=== PATIENT | female | born 1965 | race Caucasian/White ===

== ENCOUNTER 2023-12-11 13:20 | Emergency (ER) | payer MEDICARE, SELFPAY ==
[2023-12-11] VITALS (7 sets, daily range): BP systolic 107–142; BP diastolic 58–74; PULSE 70–76; TEMP 36.8; O2SAT 86–100; BMI 42.6
--- NOTE | 2023-12-11 13:52 | ED_ITS ---
HPI HPI - General Adult General Chief complaint: Shortness of Breath/Dyspnea Stated complaint: SOB Time Seen by Provider: 12/11/23 13:34 Source: patient and family History of Present Illness HPI narrative: This patient is here for concern of having possible pneumonia or bronchitis. She said she coughed once with sputum and it was green. She does not have runny nose or sore throat. She is on continuous oxygen at 4 L /. She uses a noninvasive device at nighttime. She has albuterol at home but did not use it. She is concerned because a family member that she lives with was recently diagnosed as having pneumonia. Her pulse oximetry here is 100% on 3 L, as I said she normally is on 4. She appears in no distress. She is not had nausea or vomiting. She has not had history of coronary artery disease. She has been told that her EKG has been abnormal in the past. She has not had a heart catheterization. She says she has some aching in her chest especially when she coughs a little bit Related Data Home Medications ?Medication ?Instructions ?Recorded ?Confirmed albuterol sulfate 90 mcg/actuation 2 inh inhalation Q4H PRN shortness 12/11/23 12/11/23 aerosol inhaler of breath or wheezing apixaban 5 mg tablet (Eliquis) 5 mg PO Q12H 12/11/23 12/11/23 atorvastatin 20 mg tablet 20 mg PO DAILY 12/11/23 12/11/23 brexpiprazole 1 mg tablet (Rexulti) 1 mg PO DAILY 12/11/23 12/11/23 bumetanide 2 mg tablet 2 mg PO Q12H 12/11/23 12/11/23 dulaglutide 3 mg/0.5 mL 3 mg subcut .weekly 12/11/23 12/11/23 subcutaneous pen injector (Trulicity) escitalopram oxalate 20 mg tablet 20 mg PO DAILY 12/11/23 12/11/23 fluticasone propionate 115 2 inh inhalation Q12H 12/11/23 12/11/23 mcg-salmeterol 21 mcg/actuation HFA inhaler (Advair HFA) glipizide 10 mg tablet 10 mg PO DAILY 12/11/23 12/11/23 hydroxyzine HCl 10 mg tablet 10 mg PO Q8H PRN anxiety 12/11/23 12/11/23 ipratropium 0.5 mg-albuterol 3 mg ml inhalation 12/11/23 (2.5 mg base)/3 mL nebulization soln levothyroxine 175 mcg tablet 175 mcg PO DAILY 12/11/23 12/11/23 metoprolol succinate 50 mg 50 mg PO DAILY 12/11/23 12/11/23 tablet,extended release 24 hr montelukast 10 mg tablet 10 mg PO DAILY 12/11/23 12/11/23 potassium chloride 20 mEq 20 meq PO DAILY 12/11/23 12/11/23 tablet,extended release(part/cryst) spironolactone 50 mg tablet 50 mg PO DAILY 12/11/23 12/11/23 Allergies Allergy/AdvReac Type Severity Reaction Status Date / Time No Known Drug Allergies Allergy Verified 12/11/23 13:44 Opioid HPI Opioid Management Most Recent Opioid Data: No Data to Display Exam Narrative Exam Narrative: Patient is awake alert does not appear an extremis. Has a somewhat flattened affect. Her vital signs are stable. She has continuous oxygen at 3 to 4 L. 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 Her chief complaint is as noted above. I reviewed her old medical records and cannot find anything in this electronic health record. She says she was admitted here 2 years ago and was intubated. She is awake oriented does not appear an extremis respiratory rate is normal she is not hypoxic. Skin and integument were normal with no petechia purpura rash or exanthem. There is no conjunctival scleral icterus or evidence of pallor. Lungs had no wheeze rales or rhonchi. Heart sounds are regular with no S3-S4 or murmur. She did not complain of any abdominal pain. Her legs have no pitting edema. Mental status appears normal. Constitutional Vital Signs, click to edit/add: Last Vital Signs Temp 98.2 F 12/11/23 13:56 Pulse 76 12/11/23 15:01 Resp 16 12/11/23 15:01 BP 137/66 12/11/23 15:01 Pulse Ox 90 L 12/11/23 15:01 O2 Del Method Nasal Cannula 12/11/23 14:25 O2 Flow Rate 3 12/11/23 14:25 Course Vital Signs Vital signs: Vital Signs Blood Pressure 124/58 05/30/24 13:39 Pulse Oximetry 86 L 12/11/23 13:39 Temperature 98.2 F 12/11/23 13:56 Pulse Rate 76 12/11/23 15:01 Respiratory Rate 16 12/11/23 15:01 Blood Pressure 137/66 12/11/23 15:01 Pulse Oximetry 90 L 12/11/23 15:01 Oxygen Delivery Method Nasal Cannula 12/11/23 14:25 Oxygen Delivery Flow Rate 3 12/11/23 14:25 Medical Decision Making MDM Narrative Medical decision making narrative: Patient's white blood cell count was noted to be modestly elevated but there is no bandemia. Rest her laboratory studies were noted. I spoke to her primary care doctor who had access to her lab test and her kidney function is pretty much identical. When I asked the patient if she is seeing a kidney specialist she said no and yet her primary care doctor says that she is followed by nephrology. She is also seeing pulmonary medicine here. Neither case he said to be glad to see her in the office we do not see any criteria for admission at this stage. Lab Data Labs: Lab Results 12/11/23 Range/Units 14:10 WBC 14.1 H (4.0-11.0) 10^3/uL RBC 3.85 L (4.20-5.40) 10^6/uL Hgb 10.5 L (12.0-16.0) g/dL Hct 34.2 L (36.0-48.0) % MCV 88.8 (81.0-99.0) fL MCH 27.3 (26.7-34.0) pg MCHC 30.7 (29.9-35.2) g/dL RDW 13.1 (11.0-15.0) % Plt Count 280 (150-450) 10^3/uL MPV 10.2 (9.5-13.5) fL Neut % (Auto) 84.9 H (43.0-75.0) % Lymph % (Auto) 6.6 L (20.5-60.0) % [place] % (Auto) 5.0 (1.7-12.0) % Eos % (Auto) 2.6 (0.9-7.0) % Baso % (Auto) 0.3 (0.2-2.0) % Neut # (Auto) 12.0 H (1.4-6.5) 10^3/uL Lymph # (Auto) 0.9 L (1.2-3.8) 10^3/uL [place] # (Auto) 0.7 (0.3-0.8) 10^3/uL Eos # (Auto) 0.4 (0.0-0.7) 10^3/uL Baso # (Auto) 0.0 (0.0-0.1) 10^3/uL Abs Immat Gran (auto) 0.09 H (0.00-0.03) 10^3/uL Imm/Tot Granulo (auto) 0.6 H (0.0-0.5) % Sodium 134 L (136-145) mmol/L Potassium 4.6 (3.5-5.1) mmol/L Chloride 96 L (98-107) mmol/L Carbon Dioxide 29.6 (21.0-32.0) mmol/L Anion Gap 13.0 BUN 42.0 H (7.0-18.0) mg/dL Creatinine 2.64 H (0.55-1.02) mg/dL Est GFR ( Amer) 23 L (>=60) Est GFR (Non-Af Amer) 19 L (>=60) BUN/Creatinine Ratio 15.9 Glucose 198 H (74-106) mg/dL Calcium 8.2 L (8.5-10.1) mg/dL Total Bilirubin 0.4 (0.2-1.0) mg/dL AST 9 L (15-37) U/L ALT 16 (14-59) U/L Alkaline Phosphatase 95 (46-116) U/L Troponin I High Sens 4.7 (4.0-51.3) pg/mL Total Protein 7.9 (6.4-8.2) g/dL Albumin 3.2 L (3.4-5.0) g/dL Globulin 4.7 g/dL Albumin/Globulin Ratio 0.7 Discharge Plan Discharge Stand Alone Forms: Portal Instructions Chief Complaint: Shortness of Breath/Dyspnea Clinical Impression: COPD (chronic obstructive pulmonary disease) Patient Disposition: Home, Self-Care Time of Disposition Decision: 16:19 Prescriptions / Home Meds: No Action albuterol sulfate 90 mcg/actuation HFA aerosol inhaler 2 inh INHALATION Q4H PRN (Reason: shortness of breath or wheezing) Eliquis 5 mg tablet 5 mg PO Q12H atorvastatin 20 mg tablet 20 mg PO DAILY Rexulti 1 mg tablet 1 mg PO DAILY bumetanide 2 mg tablet 2 mg PO Q12H Trulicity 3 mg/0.5 mL pen injector 3 mg SUBCUT .weekly escitalopram oxalate 20 mg tablet 20 mg PO DAILY fluticasone propion-salmeterol [Advair HFA] 115-21 mcg/actuation HFA aerosol inhaler 2 inh inhalation Q12H glipizide 10 mg tablet 10 mg PO DAILY hydroxyzine HCl 10 mg tablet 10 mg PO Q8H PRN (Reason: anxiety) ipratropium-albuterol 0.5 mg-3 mg(2.5 mg base)/3 mL solution for nebulization INHALATION levothyroxine 175 mcg tablet 175 mcg PO DAILY metoprolol succinate 50 mg tablet extended release 24 hr 50 mg PO DAILY montelukast 10 mg tablet 10 mg PO DAILY potassium chloride 20 mEq tablet,ER particles/crystals 20 meq PO DAILY spironolactone 50 mg tablet 50 mg PO DAILY Print Language: [place]i Additional Instructions: Continue your regular medications and oxygen therapy. Your doctor can see you tomorrow in the office Referrals: Shaikh Caldwell MD [Primary Care Provider] - 1 week
--- NOTE | 2023-12-11 14:04 | ECG_ITS ---
[facility] Test Date: 2023-12-11 Pat Name: FRITZ EVANS Department: Room: - Gender: Female Lpn Rn Hospice: : 1965 Requested By: SHAIKH JOE Order Number: [id number] Reading MD: MARTHA TAYLOR Measurements Intervals [place] Rate: 73 P: 65 DE: 218 QRS: -46 QRSD: 90 T: 41 QT: 404 QTc: 430 Interpretive Statements 1100 Sinus rhythm 2231 First degree AV block 3433 Septal myocardial infarction, probably old 7200 Abnormal left axis deviation 8102 Low QRS voltage in chest leads 9150 abnormal ECG Electronically Signed On 12-11-2023 22:38:27 EDT by MARTHA TAYLOR
[2023-12-11 14:22] LABS: Basophils Percent Auto 0.3 % (0.2-2.0); Eosinophils Absolute Auto 0.4 10^3/uL (0.0-0.7); Eosinophils Percent Auto 2.6 % (0.9-7.0); Hematocrit 34.2 % (36.0-48.0); Hemoglobin 10.5 g/dL (12.0-16.0); Immature Granulocytes Abs Auto 0.09 10^3/uL (0.00-0.03); Immature Granulocytes Pct Auto 0.6 % (0.0-0.5); Lymphocytes Absolute Auto 0.9 10^3/uL (1.2-3.8); Lymphocytes Percent Auto 6.6 % (20.5-60.0); Mean Corpuscular HGB Conc 30.7 g/dL (29.9-35.2); Mean Corpuscular Hemoglobin 27.3 pg (26.7-34.0); Mean Corpuscular Volume 88.8 fL (81.0-99.0); Mean Platelet Volume 10.2 fL (9.5-13.5); Monocytes Absolute Auto 0.7 10^3/uL (0.3-0.8); Neutrophils Percent Auto 84.9 % (43.0-75.0); Platelet Count 280 10^3/uL (150-450); Red Blood Count 3.85 10^6/uL (4.20-5.40); Red Cell Distribution Width 13.1 % (11.0-15.0); White Blood Count 14.1 10^3/uL (4.0-11.0)
[2023-12-11] MEDS: IPRATROPIUM/ALBUTEROL SULFATE 3 ML AMPUL.NEB IH (14:24)
[2023-12-11 14:43] LABS: Alanine Aminotransferase 16 U/L (14-59); Albumin Globulin Ratio 0.7; Albumin Level 3.2 g/dL (3.4-5.0); Alkaline Phosphatase 95 U/L (46-116); Aspartate Amino Transferase 9 U/L (15-37); BUN Creatinine Ratio 15.9; Bilirubin Total 0.4 mg/dL (0.2-1.0); Calcium 8.2 mg/dL (8.5-10.1); Carbon Dioxide 29.6 mmol/L (21.0-32.0); Chloride 96 mmol/L (98-107); Estimated GFR (African America 23 (>=60); Estimated GFR (Non-African Ame 19 (>=60); Globulin 4.7 g/dL; Glucose 198 mg/dL (74-106); Potassium 4.6 mmol/L (3.5-5.1); Sodium 134 mmol/L (136-145); Total Protein 7.9 g/dL (6.4-8.2); Troponin I High Sensitivity 4.7 pg/mL (4.0-51.3)
--- NOTE | 2023-12-11 14:55 | XR_ITS ---
The [address] [address] Patient Name: FRITZ EVANS MRN: [id number] date: 1965 Sex: F Assigned Patient Location: ED.MAIN Current Patient Location: ER Accession/Order Number: [id number] Exam Date: 12/11/2023 14:50 Report Date: 12/11/2023 15:39 At the request of: HIWOT DENG Procedure: XR chest 1V EXAMINATION: XR chest 1V HISTORY: Cough COMPARISON: 03/14/2022 TECHNIQUE: AP portable FINDINGS: LUNGS: No significant pulmonary parenchymal abnormalities. VASCULATURE: No increased pulmonary vasculature. PLEURA: No pneumothorax, effusion, or pleural thickening. CARDIAC: No cardiomegaly or cardiac silhouette abnormality. MEDIASTINUM: No visible mass or adenopathy. Aortic atherosclerosis BONES: No fracture or visible bone lesion. OTHER: Negative. XR/XR chest 1V IMPRESSION: No acute cardiopulmonary process Electronically authenticated by: BECKI VINCENT Date: 12/11/2023 15:39
== END 2023-12-11 16:41 | disposition home or self-care (01) ==
PROVIDERS: Emergency Provider Emergency Medicine Emergency Medical Services; PCP Internal Medicine
DX: J44.9 Chronic obstructive pulmonary disease, unspecified (principal); Z99.81 Dependence on supplemental oxygen
CPT/HCPCS: 36415; 71045; 80053; 84484; 85025; 93005; 94640; 99285

== ENCOUNTER 2023-12-19 10:58 | Outpatient (OUT) | payer MEDICARE, SELFPAY ==
--- NOTE | 2023-12-19 10:56 | MM_ITS ---
Patient Name: FRITZ EVANS MR#: [id number] : 1965 Exam Date: 12/19/2023 Ordering Doctor: Shaikh Oscar Caldwell . RADIOLOGY REPORT PROCEDURE: MM TOMOSYNTHESIS SCREENING BI COMPARISON: MG MAMM SCREEN IVONNE W CAD, 02/09/2018. MG MAMM SCREEN IVONNE W CAD, 12/31/2016. INDICATIONS: Screening Calculator Name NCI Breast Cancer Risk Assessment Tool 5 Year Breast Cancer Risk 1.30% Lifetime Breast Cancer Risk 7.60% Personal Breast Cancer No Personal Ovarian Cancer No Treatments None Family Cancers None LOCATION: [facility] BREAST COMPOSITION: There are scattered areas of fibroglandular density. FINDINGS: DIAGNOSTIC CATEGORY 2--BENIGN FINDING. NO CHANGE FROM COMPARISON. Scattered benign-appearing calcifications are present. Scattered benign-appearing lymph nodes are present. RIGHT BREAST: No significant suspicious finding. LEFT BREAST: No significant suspicious finding. RECOMMENDATIONS: ROUTINE MAMMOGRAM AND CLINICAL EVALUATION IN 12 MONTHS. PLEASE NOTE: A NORMAL MAMMOGRAM DOES NOT EXCLUDE THE POSSIBILITY OF BREAST CANCER. A CLINICALLY SUSPICIOUS PALPABLE LUMP SHOULD BE BIOPSIED. Dictated by: Stoney Shaw MD on 12/22/2023 at 13:36 Approved by: Stoney Shaw MD on 12/22/2023 at 13:37
== END 2023-12-19 10:59 | disposition home or self-care (01) ==
LOC: MAMMO 10:58
PROVIDERS: PCP Internal Medicine; Visit Provider Internal Medicine
DX: Z12.31 Encounter for screening mammogram for malignant neoplasm of breast (principal); Z87.891 Personal history of nicotine dependence; Z12.2 Encounter for screening for malignant neoplasm of respiratory organs
CPT/HCPCS: 71271; 77063; 77067

== ENCOUNTER 2023-12-19 10:58 | Outpatient (OUT) | payer MEDICARE, SELFPAY ==
--- NOTE | 2023-12-19 10:58 | CT_ITS ---
[address] [address] Patient Name: FRITZ EVANS MRN: [id number] date: 1965 Sex: F Assigned Patient Location: CT Current Patient Location: Accession/Order Number: [id number] Exam Date: 12/19/2023 11:24 Report Date: 12/22/2023 04:31 At the request of: JOSELINE ROBLES Procedure: CT lung screening low-dose EXAMINATION: CT lung screening low-dose HISTORY: Nicotine dependence Z87.891 COMPARISON: CT chest 05/09/2022 TECHNIQUE: Axial, Coronal, and Sagittal images were created without the administration of IV contrast material. Dose reduction techniques were achieved by using automated exposure control and/or adjustment of mA and/or kV according to patient size and/or use of iterative reconstruction technique. FINDINGS: LUNGS: Stable thin curvilinear stranding within left lung base favoring scarring. No mass or acute infiltrates. Stable appearance of a few small nodules scattered within the lungs, largest is right lower lobe superior segment, 4 mm. PLEURA: No mass, effusion, or pneumothorax. VASCULATURE: No abnormality. VALENTE: No mass or pathologic adenopathy. MEDIASTINUM: No mass or pathologic adenopathy. CARDIAC: No enlargement, pericardial thickening, or pericardial effusion. Coronary artery calcifications: AORTA: No aneurysm or dissection. CHEST WALL: No mass or axillary adenopathy BONES: No bone lesion or fracture. LIMITED ABDOMEN: No suspicious findings. Limited images of the upper abdomen. OTHER: Negative. CT/CT lung screening low-dose IMPRESSION: 1. Lung-RADS 2- Benign Appearance or Behavior. Nodules with a very low likelihood of becoming a clinically active cancer due to size or lack of growth. Follow-up CT Chest in 1 year. Electronically authenticated by: LAURITA ROBLES Date: 12/22/2023 04:31
== END 2023-12-19 10:59 | disposition home or self-care (01) ==
LOC: CT 10:59
PROVIDERS: PCP Internal Medicine; Visit Provider Internal Medicine
DX: Z87.891 Personal history of nicotine dependence (principal); Z12.2 Encounter for screening for malignant neoplasm of respiratory organs
CPT/HCPCS: 71271

== ENCOUNTER 2024-12-23 14:09 | Outpatient (OUT) | payer MEDICARE, SELFPAY ==
--- NOTE | 2024-12-23 14:20 | CT_ITS ---
[address] [address] Patient Name: FRITZ EVANS MRN: [id number] date: 1965 Sex: F Assigned Patient Location: CT Current Patient Location: CT Accession/Order Number: [id number] Exam Date: 12/23/2024 14:53 Report Date: 12/23/2024 15:01 At the request of: JOSELINE ROBLES DO Procedure: CT lung screening low-dose CT CHEST WITHOUT CONTRAST, LOW DOSE SCREENING: CLINICAL DATA: A 59-year old former smoker COMPARISON: CT 12/19/2023 TECHNIQUE: Noncontrast axial CT scan images of the chest were obtained under the low dose screening CT protocol. Coronal and sagittal reconstructed images were also submitted. FINDINGS: Mediastinum : Suboptimal evaluation due to low-dose technique. Thoracic aorta appears normal in caliber. Pulmonary trunk appears nondilated. No pericardial effusion. No lymphadenopathy. The esophagus is grossly unremarkable. Lungs: No focal consolidation, pneumothorax or pleural effusion. Trachea and distal airways appear patent. Scattered areas of lung scarring. Emphysema. A few tree-in-bud nodules are noted. No suspicious noncalcified pulmonary nodule or mass. Upper abdomen: No acute findings. Bony thorax and chest wall: Soft tissues surrounding the chest wall demonstrate no acute findings. Osseous structures demonstrate degenerative change. CT/CT lung screening low-dose IMPRESSION: NO SUSPICIOUS PULMONARY NODULE. LUNG - RADS Version 1.0 Assessment: Category 1, Negative (No nodules and definitely benign nodules). Management: Continue annual lung screening with LDCT in 12 months. Impression dictated by: Ajay Dumont Jr., D.O. 12/23/2024 3:01 PM Dictation Location: [place] [address] Electronically authenticated by: [id number] Y Date: 12/23/2024 15:01
== END 2024-12-23 14:10 | disposition home or self-care (01) ==
PROVIDERS: PCP Internal Medicine; Visit Provider Internal Medicine
DX: Z87.891 Personal history of nicotine dependence (principal); Z12.2 Encounter for screening for malignant neoplasm of respiratory organs
CPT/HCPCS: 71271

== ENCOUNTER 2024-12-23 14:12 | Outpatient (OUT) | payer MEDICARE, SELFPAY ==
--- OUTSIDE RECORDS SUMMARY | 2024-12-23 14:15 | XMS_ITS | Clinical Summary ---
Author Organization [facility] Address [address] [place] [address] Care Team Providers Care Clerk Of Scales Name Role Phone Lokesh Khoury MD Primary Care Provider [phone] Sharmin Ballard TECHNICAL SUPPORT INTERNSHIP Unavailable [phone] Allergies Active Allergy Reactions Criticality Noted Date Comments Cat Dander 11/03/2022 Dog Epithelium 11/03/2022 Erythromycin 10/01/2023 Erythromycin Base 05/02/2016 Other reaction(s): Severe nausea & vomiting Medications Continuous Blood Gluc Spirits Model (FreeStyle Vitaliy 2 [place]) deviceIndications: Type 2 diabetes mellitus with stage 3a chronic kidney disease, without long-term current use of insulin ([facility]) 1 each Daily 1 each 09/22/19 24 Active ipratropium-albute rol (Duo-Neb) 0.5-2.5 mg/3 mL nebulizer solution Take 3 mL by nebulization in the morning and 3 mL at noon and 3 mL in the evening and 3 mL before bedtime. 09/03/19 24 Active Stiolto Respimat 2.5-2.5 MCG/ACT aerosol solution inhaler Inhale 2 Inhalation Daily 09/08/19 24 Active Continuous Blood Gluc Spirits Model (FreeStyle Vitaliy 2 [place]) deviceIndications: Type 2 diabetes mellitus with stage 4 chronic kidney disease, without long-term current use of insulin (HCC) 1 each Daily 1 each 10/01/19 24 Active metoprolol succinate XL (Toprol-XL) 50 MG 24 hr tabletIndications: Primary hypertension Take 1 tablet (50 mg) by mouth Daily 90 tablet 1 01/01/20 24 Active spironolactone (Aldactone) 50 MG tabletIndications: Primary hypertension Take 1 tablet (50 mg) by mouth Daily 90 tablet 1 01/01/20 24 Active apixaban (Eliquis) 5 MG tabletIndications: Other chronic pulmonary embolism without acute cor pulmonale (HCC) Take 1 tablet (5 mg) by mouth every 12 (twelve) hours 180 tablet 01/01/20 24 Active dulaglutide (Trulicity) 3 MG/0.5ML solution pen-injectorIndica tions:Type 2 diabetes mellitus with stage 4 chronic kidney disease, with long-term current use of insulin ([facility]) Inject 3 mg under the skin 1 (one) time per week 6 mL 1 01/01/20 24 Active atorvastatin (Lipitor) 20 MG tabletIndications: Hyperlipidemia, unspecified hyperlipidemia type Take 1 tablet (20 mg) by mouth Daily 90 tablet 1 01/01/20 24 Active escitalopram (Lexapro) 20 MG tabletIndications: Recurrent major depressive disorder, in partial remission Take 1 tablet (20 mg) by mouth Daily 90 tablet 1 01/01/20 24 Active levothyroxine (Synthroid, Levoxyl) 175 MCG tabletIndications: 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 Take 1 tablet (175 mcg) by mouth Daily 90 tablet 1 01/01/20 24 Active buPROPion XL (Wellbutrin XL) 150 MG 24 hr tabletIndications: Recurrent major depressive disorder, in partial remission Take 1 tablet (150 mg) by mouth Daily 90 tablet 1 01/01/20 24 Active glipiZIDE (Glucotrol) 10 MG tabletIndications: Type 2 diabetes mellitus with stage 4 chronic kidney disease, without long-term current use of insulin ([facility]) Take 1 tablet (10 mg) by mouth Daily 90 tablet 1 01/01/20 24 Active montelukast (Singulair) 10 MG tabletIndications: Chronic rhinitis Take 1 tablet (10 mg) by mouth Daily 90 tablet 1 01/01/20 24 Active bumetanide (Bumex) 2 MG tabletIndications: Type 2 diabetes mellitus with stage 4 chronic kidney disease, without long-term current use of insulin ([facility]),Chronic heart failure with preserved ejection fraction (HCC) TAKE 1 TABLET BY MOUTH IN THE MORNING and TAKE 1 TABLET AT BEDTIME. 180 tablet 1 02/25/20 24 Active Active Problems Problem Noted Date Diagnosed Date Chronic heart failure with preserved ejection fr action 01/01/2024 Assessment & Plan (01/01/2024 10:18 AM EDT): Euvolemic with mild LE edema. On bumex 2 q12. C/w same. No recent hospital/ED visit for CHF exacerbations Chronic rhinitis 01/01/2024 Assessment & Plan (01/01/2024 10:19 AM EDT): Uses singulair CKD (chronic kidney disease) stage 4, GFR 15-29 ml/min 01/01/2024 Assessment & Plan (01/01/2024 10:19 AM EDT): CKD 4 due to T2 DM. Serum cr more or less at baseline. Bumex for volume control Refer to nephro Medicare annual wellness visit, subsequent 12/31 Assessment & Plan (01/01/2024 10:21 AM EDT): Patient here for Medicare Wellness. Reviewed medical, surgical and social history. Reviewed medication list. Patient screened for depression, fall risk, cognitive impairment. Patient provided appropriate education on chronic medical conditions, prescription medications. Patient's health related questions and concerns addressed and answered. Reiterated that she needs to get Cologuard done Type 2 diabetes mellitus wit h stage 4 chronic kidney disease, with long-term current use of insulin 01/01/2024 Multinodular goiter 10/01/2023 Encounter for screening for malignant neoplasm o f colon 10/01/2023 Assessment & Plan (10/01/2023 1:07 PM EDT): Ordered cologuard. Body mass index [BMI] 50.0-59.9, adult (Z68.43) 10/01/2023 Assessment & Plan (10/01/2023 1:07 PM EDT): Would benefit from weight loss. On trulicity. Morbid (severe) obesity due to excess calories ( E66.01) 10/01/2023 Assessment & Plan (10/01/2023 1:07 PM EDT): Counseled on lifestyle measures, limiting caloric intake. Stage 4 chronic kidney disease 10/01/2023 Assessment & Plan (10/01/2023 1:06 PM EDT): Due to htn, t2 dm. No recent labs. Ordered labs. Type 2 diabetes mellitus wit h stage 4 chronic kidney disease, without long-term current use of insulin 10/01/2023 Assessment & Plan (01/01/2024 10:19 AM EDT): Reports blood glucose are at goal A1C 10/04 at goal C/w metformin, glipizide and trulicity. Assessment & Plan (10/01/2023 1:06 PM EDT): Reports blood glucose are at goal Labs ordered to assess her glycemic control C/w metformin, glipizide and trulicity. Chronic respiratory failure with hypoxia, on home O2 therapy 06/19/2018 Assessment & Plan (01/01/2024 10:17 AM EDT): Due to COPD/CHF and OHS. Uses BIPAP for OHS/DANIEL On 4 l O2 Assessment & Plan (10/01/2023 1:05 PM EDT): On 4.5 L O2 via NC. No change. Stable. Monitor COPD (chronic obstructive pulmonary disease) 01/2018 Assessment & Plan (01/01/2024 10:17 AM EDT): On [place]. Follows Dr Dent. Recent ED visit for COPD exacerbation and then Dr Dent prescribed her oral prednisone in office visit for mild COPD exacerbation No wheezing/cough or SOB reported by patient. Assessment & Plan (10/01/2023 1:05 PM EDT): On [place]. Follows Dr Dent. No recent exacerbations. Stable. Depression 06/19/2018 Assessment & Plan (01/01/2024 10:20 AM EDT): Currently on Lexapro, Wellbutrin. No SI/HI. Patient reports intermittent depressive symptoms. Overall improved. Assessment & Plan (10/01/2023 1:08 PM EDT): Currently on Lexapro, Wellbutrin. No SI/HI. Patient reports intermittent depressive symptoms. Fibromyalgia 06/19/2018 Hyperlipidemia 06/19/2018 Assessment & Plan (01/01/2024 10:20 AM EDT): On lipitor. Lipid panel 10/04 LDL at goal Assessment & Plan (10/01/2023 1:07 PM EDT): On lipitor. Check lipid panel Hypertension 06/19/2018 Assessment & Plan (01/01/2024 10:18 AM EDT): Stable. At goal. C/w home medications. Hypothyroidism 06/19/2018 Assessment & Plan (01/01/2024 10:19 AM EDT): On levothyroxine 175 mcg.TSH at goal 10/04 Assessment & Plan (10/01/2023 1:07 PM EDT): On levothyroxine 175 mcg. Check TSH DANIEL (obstructive sleep apnea) 06/19/2018 Other pulmonary embolism without acute cor pulmo nale 06/19/2018 Assessment & Plan (01/01/2024 10:18 AM EDT): On Eliquis. C/w same. Pulmonary HTN 06/19/2018 H/O: section 08/24/2010 Obesity 08/24/2010 Immunizations Immunization Administration Dates Next Due Influenza, injectable, quadrivalent, preservativ e free 06/19/2018 Family History Medical History Relation Name Comments Asthma Father Heart disease Father Hypertension Father Cancer Maternal Grandfather Mental illness Maternal Grandmother Heart disease Mother Cancer Mother's Sister Hypertension Other Spouse Cancer Paternal Grandfather Heart disease Paternal Grandfather Hypertension Paternal Grandfather Cancer Paternal Grandmother Asthma Son Diabetes Son Heart disease Son Hypertension Son Mental illness Son Relation Name Status Comments Father Maternal Grandfather Maternal Grandmother Mother Alive Mother's Sister Other Spouse Alive Paternal Grandfather Paternal Grandmother Sibling Alive Son Alive Social History Tobacco Use Types Packs/Day Years Used Date Smoking Tobacco: Former Cigarettes Passive Smoke Exposure: Past Smokeless Tobacco: Current Tobacco Cessation:Ready to Q uit: No; Counseling Given: Yes Comments:(Heavy cigarette smoker (20-39/day) Alcohol Use Standard Drinks/Week Comments Never 0 (1 standard drink = 0.6 oz pur e alcohol) PHQ-2 Answer Date Recorded Patient Health Questionnaire-2 Score 0 01/01/2024 Comments Unknown Sex and Gender Information Value Date Recorded Sex Assigned at Not on file Legal Sex Female 6:54 PM EDT Gender Identity Not on file Sexual Orientation Not on file 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 on file Not on file Not on file Last Filed Vital Signs Vital Sign Reading Time Taken Comments Blood Pressure 112/68 01/01/2024 9:37 AM EDT Pulse 71 01/01/2024 9:37 AM EDT 97% O 2 Temperature 37.3 C (99.1 F) 01/01/2024 9:37 AM EDT Respiratory Rate 20 10/01/2023 11:40 AM EDT Oxygen Saturation 98% 10/01/2023 11:40 AM EDT Inhaled Oxygen Concentration - - Weight 134 kg (296 lb) 01/01/2024 9:37 AM EDT Height 172.7 cm (5' 8 ) 01/01/2024 9:37 AM EDT Body Mass Index 45.01 01/01/2024 9:37 AM EDT Plan of Treatment Health Maintenance Due Date Last Done Comments CT Colonography 1965 Colonoscopy 1965 Colorectal Cancer Screening 1965 FIT-DNA 1965 FIT 1965 FOBT 1965 Sigmoidoscopy 1965 Pap Smear 1986 HPV/Cotest 11/30/1995 Diabetes: Hemoglobin A1C 04/07/2024 10/06/2023, 03/15 Mammogram 12/21/2024 12/22/2023, 12/12, 02/09/2018, Additional history exists Diabetes: Retinopathy Screening 03/14/2025 Influenza Vaccine (Season Ended) 2025 05/06/2020, 09/15/2019, 06/19/2018 Medicare Annual Wellness (AWV) 07/29/2025 0 07/29/2024, 01/01/2024, 01/01/2024 Diabetes: Urine Protein Screening 09/23/2025 025, 09/23/2024 Cervical Cancer Screening Discontinued Procedures Procedure Name Priority Date/Time Associated Diagnosis Comments MM TOMOSYNTHESIS SCREENING BI 12/22/2023 1:37 PM EDT from Last 3 Months or Most Recently Relevant to Health Maintenance Results * MM TOMOSYNTHESIS SCREENING BI (12/22/2023 1:37 PM EDT) Anatomical Region Laterality Modality Other 12/22/2023 1:37 PM EDT Narrative 12/22/2023 1:38 [place] [address] Mammography Report Signed Patient: FRITZ FRASER MR#: [id number] : 1965 Acct:[id number] Age/Sex: 58 / F ADM Date: 12/19/23 Loc: MAMMO Attending Dr: Shaikh Javi Del Rio Ordering Physician: Shaikh Quang Caldwell Results: Date of Service: 12/19/23 Follow Up: Procedure(s): MM tomosynthesis screening BI Accession Number(s): [id number] cc: Shaikh Quang Caldwell Patient Name: FRITZ FRASER MR#: [id number] : 1965 Exam Date: 12/19/2023 Ordering Doctor: Shaikh Oscar Caldwell . RADIOLOGY REPORT PROCEDURE: MM TOMOSYNTHESIS SCREENING BI COMPARISON: MG MAMM SCREEN IVONNE W CAD, 02/09/2018. MG MAMM SCREEN IVONNE W CAD, 12/31/2016. INDICATIONS: Screening Calculator Name NCI Breast Cancer Risk Assessment Tool 5 Year Breast Cancer Risk 1.30% Lifetime Breast Cancer Risk 7.60% Personal Breast Cancer No Personal Ovarian Cancer No Treatments None Family Cancers None LOCATION: [facility] BREAST COMPOSITION: There are scattered areas of fibroglandular density. FINDINGS: DIAGNOSTIC CATEGORY 2--BENIGN FINDING. NO CHANGE FROM COMPARISON. Scattered benign-appearing calcifications are present. Scattered benign-appearing lymph nodes are present. RIGHT BREAST: No significant suspicious finding. LEFT BREAST: No significant suspicious finding. RECOMMENDATIONS: ROUTINE MAMMOGRAM AND CLINICAL EVALUATION IN 12 MONTHS. PLEASE NOTE: A NORMAL MAMMOGRAM DOES NOT EXCLUDE THE POSSIBILITY OF BREAST CANCER. A CLINICALLY SUSPICIOUS PALPABLE LUMP SHOULD BE BIOPSIED. Dictated by: Stoney Shaw MD on 12/22/2023 at 13:36 Approved by: Stoney Shaw MD on 12/22/2023 at 13:37 Dictated By: Stoney Shaw M.D. Signed By: 12/22/23 1338 DD/ 1337 TD/TT: Mail Messenger Contractor: Procedure Note Radiology, Radiologist, MD - 12/22/2023 [place] [address] Mammography Report Signed Patient: MEHRAN FRASER#: [id number] : 1965Acct:[id number] Age/Sex: 58 / FADM Date: 12/19/23 Loc: MAMMO Attending Dr: Shaikh Javi Del Rio Ordering Physician: Shaikh Quang CaldwellResults: Date of Service: 12/19/23Follow Up: Procedure(s): MM tomosynthesis screening BI Accession Number(s): [id number] cc: Shaikh Quang Caldwell Patient Name: FRITZ FRASER MR#: [id number] : 1965 Exam Date: 12/19/2023 Ordering Doctor: Shaikh Oscar Caldwell . RADIOLOGY REPORT PROCEDURE: MM TOMOSYNTHESIS SCREENING BI COMPARISON: MG MAMM SCREEN IVONNE W CAD, 02/09/2018. MG MAMM SCREEN IVONNE W CAD, 12/31/2016. INDICATIONS: Screening Calculator Name NCI Breast Cancer Risk Assessment Tool 5 Year Breast Cancer Risk 1.30% Lifetime Breast Cancer Risk 7.60% Personal Breast Cancer No Personal Ovarian Cancer No Treatments None Family Cancers None LOCATION: [facility] BREAST COMPOSITION: There are scattered areas of fibroglandulardensity. FINDINGS: DIAGNOSTIC CATEGORY 2--BENIGN FINDING. NO CHANGE FROM COMPARISON.Scattered benign-appearing calcifications are present. Scattered benign-appearinglymph nodes are present. RIGHT BREAST: No significant suspicious finding. LEFT BREAST: No significant suspicious finding. RECOMMENDATIONS: ROUTINE MAMMOGRAM AND CLINICAL EVALUATION IN 12 MONTHS. PLEASE NOTE: A NORMAL MAMMOGRAM DOES NOT EXCLUDE THE POSSIBILITY OFBREAST CANCER. A CLINICALLY SUSPICIOUS PALPABLE LUMP SHOULD BE BIOPSIED. Dictated by: Stoney Shaw MD on 12/22/2023 at 13:36 Approved by: Stoney Shaw MD on 12/22/2023 at 13:37 Dictated By: Stoney Shaw M.D. Signed By:12/22/23 1338 DD/ 1337 TD/TT: Mail Messenger Contractor: Shaikh Javi [facility] Final Result from Last 3 Months or Most Recently Relevant to Health Maintenance Insurance [employer] MEDICAID [place] Care Teams Clerk Of Scales Relationship Specialty Start Date End Date Lokesh Khoury MD [address] [place] [id number] PCP - General Family Medicine 02/23/24 Sharmin Ballard NP [address] [place] [address] Nurse Practitioner Family Medicine 02/23/24
--- OUTSIDE RECORDS SUMMARY | 2024-12-23 14:15 | XMS_ITS | Encounter Summary ---
Author Organization [facility] Address [address] [facility] [place] [address] Care Team Providers Care Scheduler Conveyor Name Role Phone Shaikh CARI Caldwell Primary Care Provider [phone] Lokesh Khoury MD Primary Care Provider [phone] Sharmin Ballard DIRECTOR BANKING Unavailable [phone] Encounter Details Date Type Department Care Team (Late st Contact Info) Description 12/22/2023 Orders Only [facility] [address] [place] [address] Shaikh Caldwell MD [address] [place] [address] Social History Tobacco Use Types Packs/Day Years Used Date Smoking Tobacco: Former Cigarettes Smokeless Tobacco: Current Comments:(Heavy cigarette sm oker (20-39/day) Alcohol Use Standard Drinks/Week Comments Never 0 (1 standard drink = 0.6 oz pur e alcohol) PHQ-2 Answer Date Recorded Patient Health Questionnaire-2 Score 2 10/01/2023 Comments Unknown Sex and Gender Information Value Date Recorded Sex Assigned at Not on file Legal Sex Female 6:54 PM EDT Gender Identity Not on file Sexual Orientation Not on file 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 Not on file Not on file documented as of this encounter Plan of Treatment Not on file documented as of this encounter Procedures Procedure Name Priority Date/Time Associated Diagnosis Comments MM SCREENING MAMM WITH 3D KAYLAH - US AND ADDITIONAL Routine 12/22/2023 1:46 PM EDT documented in this encounter Results * MM SCREENING MAMM WITH 3D KAYLAH - US AND ADDITIONAL (12/22/2023 1:46 PM EDT) Anatomical Region Laterality Modality Radiographic Eulalia ging us Shaikh Javi [facility] IM[facility] XR PROCEDURES Final Result documented in this encounter Visit Diagnoses Not on filedocumented in this encounter Care Teams Scheduler Conveyor Relationship Specialty Start Date End Date Shaikh Caldwell MD [address] [place] [phone] PCP - General Internal Medicine 10/01/23 02/22/24 Lokesh Khoury MD [address] [place] [phone] PCP - General Family Medicine 02/23/24 Sharmin Ballard NP [address] [place] [phone] Nurse Practitioner Family Medicine 02/23/24 documented as of this encounter
--- OUTSIDE RECORDS SUMMARY | 2024-12-23 14:15 | XMS_ITS | Clinical Summary ---
Author Organization [facility] Address [address] [place] [address] Care Team Providers Care Electrician Helper Powerhouse Name Role Phone Juan Luis Reza MD Primary Care Provider [phone] Allergies Active Allergy Reactions Criticality Noted Date Comments Cat Dander 11/03/2022 Dog Epithelium 11/03/2022 Erythromycin Base 05/02/2016 Other reaction(s): Severe nausea & vomiting Medications tiotropium (SPIRIVA) 18 MCG inhalation capsuleIndicati ons:Chronic obstructive pulmonary disease, unspecified COPD type (HCC) Inhale 1 capsule into the lungs daily 30 capsule 5 018 Active albuterol (PROVENTIL) (2.5 MG/3ML) 0.083% nebulizer solutionIndicat ions:Chronic obstructive pulmonary disease, unspecified COPD type (HCC) Take 3 mLs by nebulization every 6 hours as needed for Wheezing 120 each 5 018 Active Handicap Placard MISCIndications :Small fiber neuropathy,Operations Project Manager alexandra obstructive pulmonary disease with acute exacerbation (HCC) by Does not apply route Exp 5 years 1 each 019 Active Misc. Devices (COMMODE BEDSIDE) MISCIndications :Immobility,Chr onic obstructive pulmonary disease, unspecified COPD type (HCC) 1 each by Does not apply route daily 1 each 019 Active levothyroxine (SYNTHROID) 200 MCG tablet Take 1 tablet by mouth Daily 30 tablet 5 019 Active Additional Information Patient not taking.Reported on 07/29/2024 spironolactone (ALDACTONE) 50 MG tablet Take 1 tablet by mouth Every Day Active glipiZIDE (GLUCOTROL) 10 MG tabletIndicatio ns:Type 2 diabetes mellitus with other specified complication, without long-term current use of insulin ([facility]) Take 1 tablet by mouth 2 times daily 60 tablet 3 024 Active metoprolol succinate (TOPROL XL) 50 MG extended release tablet Take 1 tablet by mouth daily 024 Active atorvastatin (LIPITOR) 20 MG tablet Take 1 tablet by mouth daily 90 tablet 1 025 Active Continuous Glucose Tower Climber (RentPostSTYLE JOCELYN 2 READER) DEVIIndications :Type 2 diabetes mellitus with other specified complication, without long-term current use of insulin ([facility]) 1 each by Does not apply route continuous 1 each 025 Active bumetanide (BUMEX) 2 MG tabletIndicatio ns:Chronic kidney disease, stage 3b ([facility]) Take 1 tablet by mouth 2 times daily 60 tablet 5 025 2024 Active escitalopram (LEXAPRO) 20 MG tablet Take 1 tablet by mouth daily 30 tablet 3 025 Active sulfamethoxazol e-trimethoprim (BACTRIM DS) 800-160 MG per tablet Take 1 tablet by mouth 2 times daily Active levothyroxine (SYNTHROID) 175 MCG tablet Take 1 tablet by mouth daily 90 tablet 3 025 Active metoprolol succinate (TOPROL XL) 100 MG extended release tablet Take 1 tablet by mouth daily 30 tablet 5 025 Active montelukast (SINGULAIR) 10 MG tabletIndicatio ns:Chronic obstructive pulmonary disease, unspecified COPD type ([facility]) Take 1 tablet by mouth nightly 30 tablet 5 025 Active TRULICITY 3 MG/0.5ML SOAJIndications :Type 2 diabetes mellitus with other specified complication, without long-term current use of insulin ([facility]) INJECT 3mg SUBCUTANEOUSLY (UNDER THE SKIN) EVERY WEEK 2 mL 025 Active ELIQUIS 5 MG TABS tablet TAKE 1 TABLET BY MOUTH IN THE MORNING & IN THE EVENING 60 tablet 5 025 Active apixaban (ELIQUIS) 5 MG TABS tablet Take 1 tablet by mouth in the morning and 1 tablet in the evening. 60 tablet 5 024 2024 Discontinued TRULICITY 3 MG/0.5ML SOAJIndications :Type 2 diabetes mellitus with other specified complication, without long-term current use of insulin (HCC) INJECT 3 (THREE) mg into the skin FOR 7 DAYS 2 mL 025 2024 Discontinued Active Problems Problem Noted Date Diagnosed Date Myoclonic jerking 07/28/2018 Asthma 06/19/2018 COPD (chronic obstructive pulmonary disease) 01/2018 Hypertension 06/19/2018 DANIEL (obstructive sleep apnea) 06/19/2018 Spinal stenosis of lumbar region 06/19/2018 Hyperlipidemia 06/19/2018 Chronic respiratory failure with hypoxia, on home O2 therapy 06/19/2018 Intestinal cramps 06/19/2018 Other pulmonary embolism without acute cor pulmo nale 06/19/2018 Small fiber neuropathy 06/19/2018 Depression 06/19/2018 Hypothyroidism 06/19/2018 Fibromyalgia 06/19/2018 Vitamin D deficiency 06/19/2018 Primary insomnia 06/19/2018 Pulmonary HTN 06/19/2018 Palpitations 05/15/2016 Tachycardia 05/15/2016 Thyroid ca 03/13/2016 H/O: section 08/24/2010 Obesity 08/24/2010 Smoking 08/24/2010 Encounters Date Type Department Care Team Description 12/20/2024 Refill [facility] [address] [place] [address] Juan Luis Reza MD Medication Refill 12/16/2024 Orders Only [facility] [address] [place] [address] Juan Luis Reza MD Colon cancer screening (Primary Dx) 12/14/2024 Orders Only [facility] [address] [place] [place] [address] Juan Luis Reza MD Colon cancer screening (Primary Dx) 12/13/[address] [facility] [address] [place] [address] Juan Luis Reza MD Medication Refill 11/07/[address] [facility] [address] [place] [address] Juan Luis Reza MD Medication Refill 10/01/[address] [facility] [address] [place] [address] Juan Luis Reza MD Type 2 diabetes mellitus with other specified complication, without long-term current use of insulin (HCC) (Primary Dx) 10/01/2024 [address] [place] [address] Juan Luis Reza MD Medication Refill 10/01/2024 [address]ill [address] [place] [address] Juan Luis Reza MD Medication Refill 09/23/2024 6:02 PM EDT - 09/23/2024 11:59 PM EDT Hospital Encounter [facility] [address] [place] [address] CKD (chronic kidney disease), stage IV (HCC); Hyperkalemia; Dysuria; Renal cyst; Type 2 diabetes mellitus with other specified complication, without long-term current use of insulin (HCC) Discharge Disposition: Home or Self Care from Last 3 Months Immunizations Immunization Administration Dates Next Due COVID-19, MODERNA KEISHA medina r, Primary or Immunocompromised, (age 12y+), IM, 100 mcg/0.5mL 09/20/2020 Influenza Virus Vaccine 05/06/2020,09/15/2019 Influenza, FLUARIX, FLULAVAL , FLUZONE (age 6 mo+) and AFLURIA, (age 3 y+), Quadv PF, 0.5mL 06/19/2018 Pneumococcal, PCV-13, PREVNAR 13, (age 6w+), IM, 0.5mL 07/14/2021 Pneumococcal, PPSV23, PNEUMO VAX 23, (age 2y+), SC/IM, 0.5mL 12/07/2015 Family History Medical History Relation Name Comments Kidney Disease Father Relation Name Status Comments Father Social History Tobacco Use Types Packs/Day Years Used Date Smoking Tobacco: Former Cigarettes 1 41.5 S tarted: 06/19/1983 Smokeless Tobacco: Never Tobacco Cessation:Counseling Given: Not Answered Alcohol Use Standard Drinks/Week Comments Not Currently 0 (1 standard drink = 0.6 oz pur e alcohol) [facility] Utilities Answer Date Recorded In the past 12 months has th e Emme E2MS, gas, oil, or water [employer] threatened to shut off services in your home? No 07/29/2024 AUDIT-C Answer Date Recorded Q1: How often do you have a drink containing alcohol? Never 07/29/2024 Q2: How many drinks containi ng alcohol do you have on a typical day when you are drinking? Patient does not drink Q3: How often do you have si x or more drinks on one occasion? Never 07/29/2024 Overall Financial Resource Strain (CARDIA) Answe r Date Recorded How hard is it for you to pa y for the very basics like food, housing, medical care, and heating? Not hard at all 03/30/2024 PHQ-2 Answer Date Recorded PHQ-9 Total Score 0 07/29/2024 Exercise Vital Sign Answer Date Recorde d On average, how many days pe r week do you engage in moderate to strenuous exercise (like a brisk walk)? 0 days 07/29/2024 On average, how many minutes do you engage in exercise at this level? 0 min 07/29/2024 Hunger Vital Sign Answer Date Recorded Within the past 12 months, y ou worried that your food would run out before you got the money to buy more. Never true 07/29/19 25 Within the past 12 months, t he food you bought just didn't last and you didn't have money to get more. Never true 07/29/2024 PRAPARE - Transportation Answer Date Re corded In the past 12 months, has l ack of transportation kept you from medical appointments or from getting medications? No 07/14 In the past 12 months, has l ack of transportation kept you from meetings, work, or from getting things needed for daily living? No 07/29/2024 Housing Stability Vital Sign Answer Luís e Recorded In the last 12 months, was t here a time when you were not able to pay the mortgage or rent on time? No 07/29/2024 In the past 12 months, how m any times have you moved where you were living? 0 07/29/2024 At any time in the past 12 m [facility], were you homeless or living in a mcc (including now)? No 07/29/2024 Food Insecurity Answer Date Recorded Within the past 12 months, y ou worried that your food would run out before you got the money to buy more. 1 07/29/2024 Within the past 12 months, t he food you bought just didn't last and you didn't have money to get more. 1 07/29/2024 Comments Unknown Sex and Gender Information Value Date Recorded Sex Assigned at Not on file Legal Sex Female 9:58 AM EST Gender Identity Not on file Sexual Orientation Not on file Last Filed Vital Signs Vital Sign Reading Time Taken Comments Blood Pressure 128/66 09/03/2024 11:15 AM EST Pulse 72 09/03/2024 11:15 AM EST Temperature 36.4 C (97.5 F) 09/03/2024 11:15 AM EST Respiratory Rate 18 09/03/2024 11:1 5 AM EST Oxygen Saturation 99% 07/29/2024 11: 13 AM EST Inhaled Oxygen Concentration - - Weight 126.7 kg (279 lb 4.8 oz) 025 11:15 AM EST Height 171.5 cm (5' 7.5 ) 09/03/2024 11 :15 AM EST Body Mass Index 43.1 09/03/2024 11:15 AM EST Plan of Treatment Upcoming Encounters Date Type Department Care Team (Late st Contact Info) Description 12/31/2024 11:40 AM EDT Office Visit [facility] Kidney and Hypertension [address] [place] [address] Tucker Rich MD [address] [place] [address] [place] [address] [phone] 4 mth f/u with labs, CKD , stage IV 01/21/2025 10:00 AM EDT Office Visit [facility] [address] [place] [address] Juan Luis Reza MD [address] [place] [address] 6 month- 08/01/2025 12:30 PM EST Office Visit [facility] [address] [place] [address] Juan Luis Reza MD [address] [place] [address] AWV Health Maintenance Due Date Last Done Comments Diabetic foot exam 11/30/1975 HIV screen 1980 Diabetic retinal exam 11/30/1983 Hepatitis C screen 11/30/1983 DTaP/Tdap/Td vaccine (1 - Tdap) 1984 Hepatitis B vaccine (1 of 3 - 19+ 3-dose series) 1984 Pap smear 1986 Cervical cancer screen 11/30/1995 HPV (without or with Pap) 11/30/1995 Colonoscopy 2010 Colorectal Cancer Screen 2010 FIT/FOBT: Average risk 2010 Fecal-DNA (Cologuard): Average risk 2010 Sigmoidoscopy/CT colonography 2010 Shingles vaccine (1 of 2) 11/30/2015 COVID-19 Vaccine (2 - season) 2024 09/20/2020 Lipids 10/05/2024 10/06/2023 Flu vaccine (Season Ended) 02/11/202505/06, 09/15/2019, 06/19/2018 A1C test (Diabetic or Prediabetic) 07/29/2025 07/29/2024, 03/30/2024, 10/06/2023, Additional history exists Depression Monitoring 07/29/2025 07/29/2024, 025 Diabetic Alb to Cr ratio (uACR) test 09/23/2025 09/23/2024 GFR test (Diabetes, CKD 3-4, OR last GFR 15-59) 09/23/2025 09/23/2024, 08/27/2024, 06/01/2024, Additional history exists Breast cancer screen 12/18/2025 12/19/2023, 02/09/2018, 02/09/2018, Additional history exists Pneumococcal 50+ years Vaccine (3 of 3 - PCV20 or PCV21) 07/14/2026 07/14/2021, 12/07/2015 Pneumococcal 0-49 years Vaccine Discontinued 07/14/2021, 12/07/2015 Annual Wellness Visit (Medicare Advantage) Completed 07/29/2024 Diabetes screen Discontinued 07/29/2024, 03/14, 10/06/2023, Additional history exists Hepatitis A vaccine Aged Out No longe r eligible based on patient's age to complete this topic Hib vaccine Aged Out No longer eligi ble based on patient's age to complete this topic Meningococcal (ACWY) vaccine Aged Out No longer eligible based on patient's age to complete this topic Meningococcal B vaccine Aged Out No l onger eligible based on patient's age to complete this topic Polio vaccine Aged Out No longer elig ible based on patient's age to complete this topic Procedures Procedure Name Priority Date/Time Associated Diagnosis Comments ALBUMIN/CREATININE RATIO, URINE Routine 09/23/2024 6:14 PM EDT Type 2 diabetes mellitus with other specified complication, without long-term current use of insulin (HCC) BASIC METABOLIC PANEL Routine 09/23/2024 6:12 PM EDT CKD (chronic kidney disease), stage IV (HCC) Hyperkalemia Dysuria Renal cyst POCT GLYCOSYLATED HEMOGLOBIN (HGB A1C) Routine 07/29/2024 11:39 AM EST Type 2 diabetes mellitus with other specified complication, without long-term current use of insulin (HCC) HM MAMMOGRAPHY Routine 12/19/2023 9:40 AM EDT LIPID PANEL Routine 10/06/2023 1:03 PM EDT from Last 3 Months or Most Recently Relevant to Health Maintenance Results * (ABNORMAL) Albumin/Creatinine Ratio, Urine (09/23/2024 6:14 PM EDT) Albumin Urine <12 0 - 20 mg/L 09/23/2024 6:14 PM EDT [facility] Creatinine, Ur 26.8(L) 28.0 - 217.0 mg/dL 09/23/2024 6:14 PM EDT [facility] Comment:Reference range defi robinson for 1st morning urine Microalb/Fingerprint Clerk. Ratio Can not be calculated 0.0 - 25.0 mcg/mg creat 09/23/2024 6:14 PM EDT [facility] Urine (Urine) 09/23/2024 6:1 4 PM EDT 09/23/2024 6:16 PM EDT us Juan Luis Reza MD URINE ORDERABLES Final Result [facility] [address] [place] [address], [facility] [phone] [place] [address] [place] [address], [facility] [phone] * (ABNORMAL) Basic Metabolic Panel (09/23/2024 6:12 PM EDT) Sodium 135 135 - 144 mmol/L 09/23/2024 6:12 PM EDT [facility] Potassium 4.1 3.7 - 5.3 mmol/L 09/23/2024 6:12 PM EDT [facility] Chloride 97(L) 98 - 107 mmol/L 09/23/2024 6:12 PM EDT [facility] CO2 29 20 - 31 mmol/L 09/23/2024 6:12 PM EDT [facility] Anion Gap 9 9 - 17 mmol/L 09/23/2024 6:12 PM EDT [facility] Glucose 123(H) 70 - 99 mg/dL 09/23/2024 6:12 PM EDT [facility] BUN 35(H) 6 - 20 mg/dL 09/23/2024 6:12 PM EDT [facility] Creatinine 2.2(H) 0.5 - 0.9 mg/dL 09/23/2024 6:12 PM EDT [facility] Est, Glom Filt Rate 25(L) >60 mL/min/1.7 3m2 09/23/2024 6:12 PM EDT [facility] Comment: These results are not intended for use in patients <18 years of age. eGFR results are calculated without a race factor using the 2020 CKD-EPI equation. Careful clinical correlation is recommended, particularly when comparing to results calculated using previous equations. The CKD-EPI equation is less accurate in patients with extremes of muscle mass, extra-renal metabolism of creatine, excessive creatine ingestion, or following therapy that affects renal tubular secretion. Calcium 8.4(L) 8.6 - 10.4 mg/dL 09/23/2024 6:12 PM EDT [facility] Blood BLOOD SPECIMEN / Unknown 09/23/2024 6:12 PM EDT 09/23/2024 6:16 PM EDT Tucker Rich MD CHEMISTRY ORDERABLES Final Resu lt [facility] [address] [place] [phone], [facility] [phone] * POCT glycosylated hemoglobin (Hb A1C) (07/29/2024 11:39 AM EST) Hemoglobin A1C 6.0 % BLOOD SPECIMEN / Unknown 07/29/2024 11:39 AM EST Juan Luis Reza MD POINT OF CARE TEST ORDERABLES Final Result * HM MAMMOGRAPHY (12/19/2023 9:40 AM EDT) Anatomical Region Laterality Modality Other [facility] Provider HEALTH MAINTENANCE Final Result * (ABNORMAL) Lipid Panel (10/06/2023 1:03 PM EDT) Cholesterol 142 0 - 199 mg/dL 10/06/2023 1:03 PM EDT [facility] Comment: Cholesterol Guidelines: <200 Desirable 200-240 Borderline >240 Undesirable HDL 25(L) >40 mg/dL 10/06/2023 1:03 PM EDT [facility] Comment: HDL Guidelines: <40 Undesirable 40-59 Borderline >59 Desirable LDL Cholesterol 70 0 - 100 mg/dL 10/06/2023 1:03 PM EDT [facility] Comment: LDL Guidelines: <100 Desirable 100-129 Near to/above Desirable 130-159 Borderline >159 Undesirable Direct (measured) LDL and calculated LDL are not interchangeable tests. Chol/HDL Ratio 6.0 10/06/2023 1:03 PM EDT [facility] Triglycerides 232(H) <150 mg/dL 10/06/2023 1:03 PM EDT [facility] Comment: Triglyceride Guidelines: <150 Desirable 150-199 Borderline 200-499 High >499 Very high Based on AHA Guidelines for fasting triglyceride, April 2012. VLDL 46 mg/dL 10/06/2023 1:03 PM EDT [facility] 10/06/2023 1:03 PM EDT 10/06/2023 1:04 PM EDT us Shaikh Javi ALCALA CHEMISTRY ORDERABLES Final Resu lt [facility] [address] [place] [address], [facility] [phone] [facility] [address] [place] [address], [facility] [phone] from Last 3 Months or Most Recently Relevant to Health Maintenance Insurance [place] [facility] MEDICARE Advance Directives Healthcare Agents on File Name Relationship Healthcare Agent Relationshi p Communication Leonie Rodríguez Child Primary Decision Maker Jessicakelly Fraser Child Secondary Decision Maker Care Teams Electrician Helper Powerhouse Relationship Specialty Start Date End Date Juan Luis Reza MD [address] [place] [address] PCP - General Internal Medicine 03/30/24
--- OUTSIDE RECORDS SUMMARY | 2024-12-23 14:15 | XMS_ITS | Encounter Summary ---
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 Not on file Not on file documented as of this encounter Plan of Treatment Not on file documented as of this encounter Procedures Procedure Name Priority Date/Time Associated Diagnosis Comments CT LUNG SCREENING LOW DOSE 12/22/2023 4:31 AM EDT documented in this encounter Results * CT LUNG SCREENING LOW DOSE (12/22/2023 4:31 AM EDT) Anatomical Region Laterality Modality Other 12/22/2023 4:31 AM EDT Narrative 12/22/2023 4:33 AM EDT The [address] [address] [address] Scan Report Signed Patient: MELONIE FRASER MR#: [id number] : 1965 Acct:[id number] Age/Sex: 58 / F ADM Date: 12/19/23 Loc: CT Attending Dr: Robbie Robles D.O. Ordering Physician: Robbie Robles D.O. Date of Service: 12/19/23 Procedure(s): CT lung screening low-dose Accession Number(s): [id number] cc: Shaikh Quang Caldwell [address] [address] Patient Name: MELONIE FRASER MRN: [id number] date: 1965 Sex: F Assigned Patient Location: CT Current Patient Location: Accession/Order Number: [id number] Exam Date: 12/19/2023 11:24 Report Date: 12/22/2023 04:31 At the request of: ROBBIE ROBLES Procedure: CT lung screening low-dose EXAMINATION: CT lung screening low-dose HISTORY: Nicotine dependence Z87.891 COMPARISON: CT chest 05/09/2022 TECHNIQUE: Axial, Coronal, and Sagittal images were created without the administration of IV contrast material. Dose reduction techniques were achieved by using automated exposure control and/or adjustment of mA and/or kV according to patient size and/or use of iterative reconstruction technique. FINDINGS: LUNGS: Stable thin curvilinear stranding within left lung base favoring scarring. No mass or acute infiltrates. Stable appearance of a few small nodules scattered within the lungs, largest is right lower lobe superior segment, 4 mm. PLEURA: No mass, effusion, or pneumothorax. VASCULATURE: No abnormality. VALENTE: No mass or pathologic adenopathy. MEDIASTINUM: No mass or pathologic adenopathy. CARDIAC: No enlargement, pericardial thickening, or pericardial effusion. Coronary artery calcifications: AORTA: No aneurysm or dissection. CHEST WALL: No mass or axillary adenopathy BONES: No bone lesion or fracture. LIMITED ABDOMEN: No suspicious findings. Limited images of the upper abdomen. OTHER: Negative. CT/CT lung screening low-dose IMPRESSION: 1. Lung-RADS 2- Benign Appearance or Behavior. Nodules with a very low likelihood of becoming a clinically active cancer due to size or lack of growth. Follow-up CT Chest in 1 year. Electronically authenticated by: MISSAEL MATTHEWS Date: 12/22/2023 04:31 Dictated By: Missael Matthews M.D. Signed By: 12/22/23432 DD/ 0 TD/TT: Facilities Plant Engineer: Procedure Note Radiology, Radiologist, MD - 12/22/2023 [place] [address] CT Scan Report Signed Patient: MEHRAN FRASER#: [id number] : 1965Acct:[id number] Age/Sex: 58 / FADM Date: 12/19/23 Loc: CT Attending Dr: Robbie Robles D.O. Ordering Physician: Robbie Robles D.O. Date of Service: 12/19/23 Procedure(s): CT lung screening low-dose Accession Number(s): [id number] cc: Shaikh Quang Caldwell The [place] [address] Patient Name: MELONIE FRASER MRN: [id number] date: 1965 Sex: F Assigned Patient Location: CT Current Patient Location: Accession/Order Number: [id number] Exam Date: 12/19/2023 11:24 Report Date: 12/22/2023 04:31 At the request of: ROBBIE ROBLES Procedure: CT lung screening low-dose EXAMINATION: CT lung screening low-dose HISTORY: Nicotine dependence Z87.891 COMPARISON: CT chest 05/09/2022 TECHNIQUE: Axial, Coronal, and Sagittal images were created without the administration of IV contrast material. Dose reduction techniques were achieved by using automated exposure control and/or adjustment of mA and/or kV according to patient size and/or use of iterative reconstruction technique. FINDINGS: LUNGS: Stable thin curvilinear stranding within left lung base favoring scarring. No mass or acute infiltrates. Stable appearance of a few small nodules scattered within the lungs, largest is right lower lobe superior segment, 4 mm. PLEURA: No mass, effusion, or pneumothorax. VASCULATURE: No abnormality. VALENTE: No mass or pathologic adenopathy. MEDIASTINUM: No mass or pathologic adenopathy. CARDIAC: No enlargement, pericardial thickening, or pericardial effusion. Coronary artery calcifications: AORTA: No aneurysm or dissection. CHEST WALL: No mass or axillary adenopathy BONES: No bone lesion or fracture. LIMITED ABDOMEN: No suspicious findings. Limited images of the upperabdomen. OTHER: Negative. CT/CT lung screening low-dose IMPRESSION: 1. Lung-RADS 2- Benign Appearance or Behavior. Nodules with a very low likelihood of becoming a clinically active cancer due to size or lack of growth. Follow-up CT Chest in 1 year. Electronically authenticated by: MISSAEL MATTHEWS Date: 12/22/2023 04:31 Dictated By: Missael Matthews M.D. Signed By:12/22/23432 DD/ 0 TD/TT: Facilities Plant Engineer: Generic External Data Provider [facility] Final Result documented in this encounter Visit Diagnoses Not on filedocumented in this encounter Care Teams Matching Machine Operator Relationship Specialty Start Date End Date Shaikh Caldwell MD [address] [place] [phone] PCP - General Internal Medicine 10/01/23 02/22/24 Lokesh Khoury MD [address] [place] [phone] PCP - General Family Medicine 02/23/24 Sharmin Ballard NP [address] [place] [phone] Nurse Practitioner Family Medicine 02/23/24 documented as of this encounter
--- OUTSIDE RECORDS SUMMARY | 2024-12-23 14:15 | XMS_ITS | Encounter Summary ---
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 Not on file Not on file documented as of this encounter Plan of Treatment Not on file documented as of this encounter Procedures Procedure Name Priority Date/Time Associated Diagnosis Comments XR CHEST 1 VIEW Routine 12/11/2023 4:19 PM EDT documented in this encounter Results * XR chest 1 view (12/11/2023 4:19 PM EDT) Anatomical Region Laterality Modality Chest Radiographic Eulalia ging us Rishabh Mendieta MD IMG XR PROCEDURES Final Res ult documented in this encounter Visit Diagnoses Not on filedocumented in this encounter Care Teams Cost Clerk Relationship Specialty Start Date End Date Shaikh Caldwell MD [address] [place] [address] PCP - General Internal Medicine 10/01/23 02/22/24 Lokesh Khoury MD [address] [place] [address] PCP - General Family Medicine 02/23/24 Sharmin Ballard NP [address] [place] [address] Nurse Practitioner Family Medicine 02/23/24 documented as of this encounter
--- OUTSIDE RECORDS SUMMARY | 2024-12-23 14:15 | XMS_ITS | Encounter Summary ---
Author Organization [facility] Address [address] [place] [address] Care Team Providers Care Line O Scribe Operator Name Role Phone Shaikh CARI Caldwell Primary Care Provider [phone] Lokesh Khoury MD Primary Care Provider [phone] Sharmin Ballard OPERATIONS RESEARCH ENGINEER Unavailable [phone] Encounter Details Date Type Department Care Team (Late st Contact Info) Description 12/22/2023 Clinisync Result Encounter [facility] External Department Unsolicited Shaikh Caldwell MD [address] [place] [address] Social History Tobacco Use Types Packs/Day Years [...] 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 Not on file Not on file documented as of this encounter Plan of Treatment Not on file documented as of this encounter Procedures Procedure Name Priority Date/Time Associated Diagnosis Comments MM TOMOSYNTHESIS SCREENING BI 12/22/2023 1:37 PM EDT documented in this encounter Results * MM TOMOSYNTHESIS SCREENING BI (12/22/2023 1:37 PM EDT) Anatomical Region Laterality Modality Other 12/22/2023 1:37 PM EDT Narrative 12/22/2023 1:38 PM EDT The [address] [address] Mammography Report Signed Patient: MELONIE FRASER MR#: [id number] : 1965 Acct:[id number] Age/Sex: 58 / F ADM Date: 12/19/23 Loc: MAMMO Attending Dr: Shaikh Javi Del Rio Ordering Physician: Shaikh Quang Caldwell Results: Date of Service: 12/19/23 Follow Up: Procedure(s): MM tomosynthesis screening BI Accession Number(s): [id number] cc: Shaikh Quang Caldwell Patient Name: MELONIE FRASER MR#: [id number] : 1965 Exam Date: 12/19/2023 Ordering Doctor: Shaikh Oscar Meza RADIOLOGY REPORT PROCEDURE: MM TOMOSYNTHESIS SCREENING BI COMPARISON: MG MAMM SCREEN IVONNE W CAD, 02/09/2018. MG MAMM SCREEN IVONNE W CAD, 12/31/2016. INDICATIONS: Screening Calculator Name NCI Breast Cancer Risk Assessment Tool 5 Year Breast Cancer Risk 1.30% Lifetime Breast Cancer Risk 7.60% Personal Breast Cancer No Personal Ovarian Cancer No Treatments None Family Cancers None LOCATION: [facility] BREAST COMPOSITION: There are scattered areas [...] on 12/22/2023 at 13:36 Approved by: Stoney hSaw MD on 12/22/2023 at 13:37 Dictated By: Stoney Shaw M.D. Signed By: 12/22/23 1338 DD/ 36 TD/TT: Retail Support Associate: Procedure Note Radiology, Radiologist, MD - 12/22/2023 The [place] [id number] Mammography Report Signed Patient: ROBERT FRASERR#: [id number] : 1965Acct:[id number] Age/Sex: 58 / FADM Date: 12/19/23 Loc: MAMMO Attending Dr: Shaikh Javi Del Rio Ordering Physician: Shaikh Quang CaldwellResults: Date of Service: 12/19/23Follow Up: Procedure(s): MM tomosynthesis screening BI Accession Number(s): [id number] cc: Shaikh Quang Caldwell Patient Name: MELONIE FRASER MR#: [id number] : 1965 Exam Date: 12/19/2023 Ordering Doctor: Shaikh Oscar Meza RADIOLOGY REPORT PROCEDURE: MM TOMOSYNTHESIS SCREENING BI COMPARISON: MG MAMM SCREEN IVONNE W CAD, 02/09/2018. MG MAMM SCREEN IVONNE W CAD, 12/31/2016. INDICATIONS: Screening Calculator Name NCI Breast Cancer Risk Assessment Tool 5 Year Breast Cancer Risk 1.30% Lifetime Breast Cancer Risk 7.60% Personal Breast Cancer No Personal Ovarian Cancer No Treatments None Family Cancers None LOCATION: [facility] BREAST COMPOSITION: There are scattered areas [...] 13:37 Dictated By: Stoney Shaw M.D. Signed By:12/22/238 DD/ TD/TT: Retail Support Associate: us Shaikh Javi [facility] Final Result documented in this encounter Visit Diagnoses Not on filedocumented in this encounter Care Teams Line O Scribe Operator Relationship Specialty Start Date End Date Shaikh Caldwell MD [address] [place] [address] PCP - General Internal Medicine 10/01/23 02/22/24 Lokesh Khoury MD [address] [place] [address] PCP - General Family Medicine 02/23/24 Sharmin Ballard NP [address] [place] [address] Nurse Practitioner Family Medicine 02/23/24 documented as of this encounter
--- OUTSIDE RECORDS SUMMARY | 2024-12-23 14:15 | XMS_ITS | Encounter Summary ---
Author Organization [facility] Address [address] [place] [address] Care Team Providers Care Shift Supervisor Film Processing Name Role Phone Juan Luis Reza MD Primary Care Provider [phone] Encounter Details Date Type Department Care Team (Late st Contact Info) Description 12/16/2024 Orders Only [facility] Primary Care [address] [place] [address] Juan Luis Reza MD [address] [place] [address] Colon cancer screening (Primary Dx) Social History Tobacco Use Types Packs/Day Years Used Date Smoking Tobacco: Former Cigarettes 1 41.5 S tarted: 06/19/1983 Smokeless Tobacco: Never Alcohol Use Standard Drinks/Week Comments Not Currently 0 (1 standard drink = 0.6 oz pur e alcohol) [facility] Utilities Answer Date Recorded In the past 12 months has [employer], gas, oil, or water company threatened to shut off services in your [...] in the past 12 m [facility], were you homeless or living in a jail (including now)? No 07/29/2024 Food Insecurity Answer [...] on file Sexual Orientation Not on file documented as of this encounter Plan of Treatment Upcoming Encounters Date Type Department Care Team (Late st Contact Info) Description 12/31/2024 11:40 AM EDT [facility] [address] [place] [address] Tucker Rich MD [address] [place] [address] [address] [place] [address] 4 mth f/u with labs, CKD , stage IV 01/21/2025 10:00 AM EDT Office Visit [place] [phone] Juan Luis Reza MD [address] [place] [address] 6 month- 08/01/2025 12:30 PM EST Office Visit [address] [address] Juan Luis Reza MD [address] [place] [address] AWV Scheduled Orders Name Type Priority Associated Diagnoses Orde r Schedule Fecal DNA Colorectal cancer screening (Cologuard) Microbiology Routine Colon cancer screening Ordered: 12/16/2024 documented as of this encounter Visit Diagnoses Diagnosis Colon cancer screening- Primary Special screening for malignant neoplasms, colon documented in this encounter Additional Health Concerns Assessment Noted Time A fall risk assessment has been complete d for the patient 07/29/2024 11:07 AM EST documented as of this encounter Care Teams Shift Supervisor Film Processing Relationship Specialty Start Date End Date Juan Luis Reza MD [address] [place] [address] PCP - General Internal Medicine 03/30/24 documented as of this encounter
--- OUTSIDE RECORDS SUMMARY | 2024-12-23 14:15 | XMS_ITS | Encounter Summary ---
Author Organization [facility] Address [address] [place] [address] Care Team Providers Care Relations Liaison Name Role Phone Juan Luis Reza MD Primary Care Provider [phone] Reason for Visit * Reason Comments Medication Refill Encounter Details Date Type Department Care Team (Late st Contact Info) Description 12/13/2024 Refill [facility] Primary Care [address] [place] [address] Juan Luis Reza MD [address] [place] [address] Medication Refill Social History Tobacco Use Types Packs/Day Years Used Date Smoking Tobacco: Former Cigarettes 1 41.5 S tarted: 06/19/1983 Smokeless Tobacco: Never Alcohol Use Standard Drinks/Week Comments Not Currently 0 (1 standard drink = 0.6 oz pur e alcohol) [facility] Utilities Answer Date Recorded In the past 12 months has [employer], gas, oil, or water [employer] threatened to shut off services in your [...] any time in the past 12 m [facility], were you homeless or living in a assisted (including now)? No 07/29/2024 Food Insecurity Answer [...] Description 12/31/2024 11:40 AM EDT Office Visit [facility] Kidney and Hypertension [address] [place] [address] Tucker Rich MD [address] [place] [address] [place] [address] 4 mth f/u with labs, CKD , stage IV 01/21/2025 10:00 AM EDT Office Visit [address] [address] Juan Luis Reza MD [address] [place] [address] 6 month- 08/01/2025 12:30 PM EST Office Visit [address] [address] Juan Luis Reza MD [address] [place] [address] AWV documented as of this encounter Visit Diagnoses Diagnosis Type 2 diabetes mellitus with other specified complication, without long-term current use of insulin (HCC) documented in this encounter Additional Health Concerns Assessment Noted Time A fall risk assessment has been complete d for the patient 07/29/2024 11:07 AM EST documented as of this encounter Care Teams Relations Liaison Relationship Specialty Start Date End Date Juan Luis Reza MD [address] [place] [address] PCP - General Internal Medicine 03/30/24 documented as of this encounter
--- OUTSIDE RECORDS SUMMARY | 2024-12-23 14:15 | XMS_ITS | Encounter Summary ---
Author Organization [facility] Address [address] [place] [address] Care Team Providers Care Turpentine Distiller Name Role Phone Juan Luis Reza MD Primary Care Provider [phone] Reason for Visit * Reason Comments Medication Refill Encounter Details Date Type Department Care Team (Late st Contact Info) Description 12/20/2024 Refill [facility] Primary Care [address] [place] [address] Juan Luis Reza MD [address] [place] [address] Medication Refill Social History Tobacco Use Types Packs/Day Years Used Date Smoking Tobacco: Former Cigarettes 1 41.5 S tarted: 06/19/1983 Smokeless Tobacco: Never Alcohol Use Standard Drinks/Week Comments Not Currently 0 (1 standard drink = 0.6 oz pur e alcohol) [facility] Utilities Answer Date Recorded In the past 12 months has [employer], gas, oil, or water [employer] threatened to shut off services in your [...] any time in the past 12 m [facility], were you homeless or living in a senior care (including now)? No 07/29/2024 Food Insecurity Answer [...] Description 12/31/2024 11:40 AM EDT Office Visit [facility] Kidney and Hypertension [address] [place] [address] Tucker Rich MD [address] [place] [address] [place] [address] 4 mth f/u with labs, CKD , stage IV 01/21/2025 10:00 AM EDT Office Visit [address] [address] Juan Luis Reza MD [address] [place] [address] 6 month- 08/01/2025 12:30 PM EST Office Visit [address] [address] Juan Luis Reza MD [address] [place] [address] AWV documented as of this encounter Visit Diagnoses Not on filedocumented in this encounter Additional Health Concerns Assessment Noted Time A fall risk assessment has been complete d for the patient 07/29/2024 11:07 AM EST documented as of this encounter Care Teams Turpentine Distiller Relationship Specialty Start Date End Date Juan Luis Reza MD [address] [place] [address] PCP - General Internal Medicine 03/30/24 documented as of this encounter
--- OUTSIDE RECORDS SUMMARY | 2024-12-23 14:15 | XMS_ITS | Encounter Summary ---
Author Organization [facility] Address [address] [place] [address] Care Team Providers Care Meat Grinder Name Role Phone Juan Luis Reza MD Primary Care Provider [phone] Encounter Details Date Type Department Care Team (Late st Contact Info) Description 12/14/2024 Orders Only [facility] Primary Care [address] [place] [address] Juan Luis Reza MD [address] [place] [address] Colon cancer screening (Primary Dx) Social History Tobacco Use Types Packs/Day Years Used Date Smoking Tobacco: Former Cigarettes 1 41.5 S tarted: 06/19/1983 Smokeless Tobacco: Never Alcohol Use Standard Drinks/Week Comments Not Currently 0 (1 standard drink = 0.6 oz pur e alcohol) [facility] Utilities Answer Date Recorded In the past 12 months has [employer], gas, oil, or water company threatened to [...] any time in the past 12 m [facility], were you homeless or living in a penitentiary (including now)? No 07/29/2024 Food Insecurity Answer [...] Description 12/31/2024 11:40 AM EDT Office Visit [facility] Kidney and Hypertension [address] [place] [address] Tucker Rich MD [address] [place] [address] [address] [place] [address] 4 mth f/u with labs, CKD , stage IV 01/21/2025 10:00 AM EDT Office Visit [place] [phone] Juan Luis Reza MD [address] [place] [address] 6 month- 08/01/2025 12:30 PM EST Office Visit [address] [address] Juan Luis Reza MD [address] [place] [address] AWV Scheduled Orders Name Type Priority Associated Diagnoses Orde r Schedule Fecal DNA Colorectal cancer screening (Cologuard) Microbiology Routine Colon cancer screening Ordered: 12/14/2024 documented as of this encounter Visit Diagnoses Diagnosis Colon cancer screening- Primary Special screening for malignant neoplasms, colon documented in this encounter Additional Health Concerns Assessment Noted Time A fall risk assessment has been complete d for the patient 07/29/2024 11:07 AM EST documented as of this encounter Care Teams Meat Grinder Relationship Specialty Start Date End Date Juan Luis Reza MD [address] [place] [address] PCP - General Internal Medicine 03/30/24 documented as of this encounter
--- OUTSIDE RECORDS SUMMARY | 2024-12-23 14:16 | XMS_ITS | Encounter Summary ---
Author Organization [facility] Address [address] [place] [address] Care Team Providers Care Outside Sales Account Representative Name Role Phone Juan Luis Reza MD Primary Care Provider [phone] Encounter Details Date Type Department Care Team (Late st Contact Info) Description 03/31/2024 Orders Only [facility] Primary Care [address] [place] [address] Provider, MD Amara Social History Tobacco Use Types Packs/Day Years Used Date Smoking Tobacco: Former Cigarettes 1 41.5 S tarted: 06/19/1983 Smokeless Tobacco: Never Alcohol Use Standard Drinks/Week Comments Not Currently 0 (1 standard drink = 0.6 oz pur e alcohol) Overall Financial Resource Strain (CARDIA) Answe r Date Recorded How hard is it for you to pa y for the very basics like food, housing, medical care, and heating? Not hard at all 03/30/2024 PHQ-2 Answer Date Recorded PHQ-9 Total Score 5 03/30/2024 Hunger Vital Sign Answer Date Recorded Within the past 12 months, y ou worried that your food would run out before you got the money to buy more. Never true 03/30/20 24 Within the past 12 months, t he food you bought just didn't last and you didn't have money to get more. Never true 03/30/2024 PRAPARE - Transportation Answer Date Re corded Lack of Transportation (Medical) Not on file 03/30/2024 In the past 12 months, has l ack of transportation kept you from meetings, work, or from getting things needed for daily living? No 03/30/2024 Housing Stability Vital Sign Answer Luís e Recorded Unable to Pay for Housing in the Last Year Not o n file 03/30/2024 Number of Times Moved in the Last Year Not on fi le 03/30/2024 At any time in the past 12 m [facility], were you homeless or living in a fdc (including now)? No 03/30/2024 Food Insecurity Answer Date Recorded Within the past 12 months, y ou worried that your food would run out before you got the money to buy more. 1 03/30/2024 Within the past 12 months, t he food you bought just didn't last and you didn't have money to get more. 1 03/30/2024 Comments Unknown Sex and Gender Information Value Date Recorded Sex Assigned at Not on file Legal Sex Female 9:58 AM EST Gender Identity Not on file Sexual Orientation Not on file documented as of this encounter Plan of Treatment Upcoming Encounters Date Type Department Care Team (Late st Contact Info) Description 12/31/2024 11:40 AM EDT Office Visit [facility] Kidney and Hypertension [address] [place], [place] [phone] Tucker Rich MD [address] [place] [address] [place] [address] 4 mth f/u with labs, CKD , stage IV 01/21/2025 10:00 AM EDT Office Visit [facility] Primary Care [address] [place] [address] Juan Luis Reza MD [address] [place] [address] 6 month- 08/01/2025 12:30 PM EST Office Visit [facility] Care [address] [place] [address] Juan Luis Reza MD [address] [place] [address] AWV documented as of this encounter Procedures Procedure Name Priority Date/Time Associated Diagnosis Comments MAMMOGRAPHY Routine 12/19/2023 9:40 AM EDT documented in this encounter Results * MAMMOGRAPHY (12/19/2023 9:40 AM EDT) Anatomical Region Laterality Modality Other Historical Provider HEALTH MAINTENANCE Final Result documented in this encounter Visit Diagnoses Not on filedocumented in this encounter Care Teams Outside Sales Account Representative Relationship Specialty Start Date End Date Juan Luis Reza MD [address] [place] [address] PCP - General Internal Medicine 03/30/24 documented as of this encounter
--- OUTSIDE RECORDS SUMMARY | 2024-12-23 14:16 | XMS_ITS | Patient Health Record ---
Author Organization [facility] Address [address] [place] [address] Support Name Relationship Address Phone THO EVANS Emergency Contact [address] [facility] [address] [place] [address] FRITZ EVANS Guarantor Unknown [phone] Allergies No Known Allergies Reason For Referral No Information Medications Medication SIG (Take, Route, Frequency, Duration) Notes Start Date End Date Status Rexulti 3 MG TAKE 1 TABLET BY JEROMY TH EVERY DAY for 30 Active Spiriva HandiHaler 18 MCG 1 capsule by i nhaling the contents of the capsule using the HandiHaler device Inhalation Once a day Active Montelukast Sodium 10 MG 1 tablet Orally Once a day Active Metformin HCl 1000 MG 1 tablet orally tw ice a day (bid) Active Levemir 100 UNIT/ML as directed Subcutan eous as directed Active NovoLOG 100 UNIT/ML as directed Subcutan eous three times a day (tid) Active Pantoprazole Sodium 40 MG 1 tablet Orall y twice a day (bid) Active Acetaminophen 325 MG 1 capsule as needed Orally every 4 hrs Active Levothyroxine Sodium 75 MCG 1 tablet Ora lly Once a day Active Daliresp 500 MCG 1 tablet Orally Once a day Active Metoprolol Succinate 50 MG 1 capsule Ora lly Once a day Active Topamax 100 MG 1 tablet Orally Twic e a day Active Calcium + D Active Spironolactone 50 MG 1 tablet Orally twi ce a day (bid) Active busPIRone HCl 10 MG 1 tablet Orally Twic e a day for 30 days Active Potassium Chloride ER 20 MEQ 2 tablets with food Orally Once a day Active Eliquis 2.5 MG 1 tablet Orally twic e a day (bid) Active Vitamin D (Cholecalciferol) 25 MCG (1000 UT) 1 tablet Orally Once a day Active metOLazone 2.5 MG 1 tablet Orally once a day on Mon, Wed, Fri, Sat Active Zofran 4 MG 1 tablet Orally ever y 6 hours as needed Active DULoxetine HCl 30 MG 1 capsule Orally On ce a day Active Bumetanide 2 MG 1 tablet Orally twic e a day (bid) Active Atorvastatin Calcium 20 MG 1 tablet Oral ly Once a day Active Levothyroxine Sodium 200 MCG 1 tablet orally once a day Active Gabapentin 300 MG 1 capsule orally thr ee times a day (tid) Active MiraLax 17 GM 1 packet mixed with 8 ounces of fluid Orally twice a day (bid) as needed (prn) Active Metoclopramide HCl 10 MG 1 tablet Orally three times a day (tid) Active Sucralfate 1 GM 1 tablet Orally four times a day (qid) Active Senna 8.6 MG 2 tablets at bedtime as needed Orally Once a day Active Fluticasone Propionate Active DuoNeb Active Proventil HFA 108 (90 Base) MCG/ACT 1 puff as needed Inhalation every 6 hrs Active Bisacodyl 10 MG 1 suppository as nee ded Rectal Once a day Active Advair Diskus 250-50 MCG/DOSE 1 puff Inhalation Twice a day Active Social History Tobacco Use: Social History Observation Description Date Details (start date - stop date) Former Smoker NA - NA Tobacco Screen: Question Answer Notes Are you a: former smoker How long has it been since you last smoked? 1-5 years Alcohol Screening: Question Answer Notes Did you have a drink containing alcohol in the p ast year? No Points 0 Interpretation Negative Problems Problem Type SNOMED Code ICD Code Onset Dates Problem Status W/U Status Risk Notes Problem 28002937 Anxiety (F41.9) Active confirmed Problem 936868140 Moderate episode of recurrent major depressive disorder (F33.1) Active confirmed Plan Of Treatment No Information Insurance Providers Payer Name Payer Address Payer Phone Subscriber Number Group Number Insured Name Patient Relationship to Insured Coverage Start Date Coverage End Date ANTH Primary [address] [place] [address] [id number] THO EVANS Spouse - patient is the spouse of the insured 1 ANTH MEDICARE ADVANTAGE [address] [place] [address] [phone] [id number] [facility] FRITZ EVANS Self - patient is the insured 0 Medical (General) History Medical History History ICD Code Mood Disorder Diabetes Type 2 COPD Heart Failure Hospitalization History Reason Date(Month/Year) COPD (multiple) Blockage (100 days) 0604-4422
--- OUTSIDE RECORDS SUMMARY | 2024-12-23 14:17 | XMS_ITS | Continuity of Care Document ---
Author Organization [facility] Address [address] [place] [id number] Phone [phone] Care Team Providers Care Environmental Research Project Manager Name Role Phone Julio Reid MD Care Team Information Marketing Operations Analyst [phone] Bekah Koehler CNP Care Team Information Rece iver [phone] Problems Active Problems Provider Date Chronic diastolic heart failure Onset: 12/24/2019 Seizure disorder Onset: 12/24/19 20 Hypothyroidism Onset: 0 Depressive disorder Onset: 12/19 Spinal stenosis Onset: 0 Retention of urine Onset: 2019 Type 2 diabetes mellitus Onset: 12/15/2019 Otalgia Onset: 0 Chronic respiratory failure Onse t: 12/15/2019 Obstructive sleep apnea syndrome Onset: 2019 Vitamin D deficiency Onset: 11/11 Hyperlipidemia Onset: 0 Smoker Onset: 0 Gastroesophageal reflux disease Onset: 09/12/2019 Pulmonary thromboembolism Onset: 09/12/2019 Fibromyositis Onset: 0 Tremor Onset: 0 Frequent headache Onset: 019 Chronic obstructive pulmonary disease Onset: 07/12/2019 Pulmonary hypertension Onset: Small fiber neuropathy Onset: Tachycardia Onset: 9 Myoclonus Onset: 9 Malignant tumor of thyroid gland Onset: 02/12/2019 Insomnia Onset: 9 Finding of sensation of abdomen Onset: 02/12/2019 Asthma Onset: 9 Resolved Problems Obesity Onset: 0 Resolved: 2019 Arthritis Onset: 4 Resolved: 12/30/2013 Diabetes mellitus Onset: 014 Resolved: 09/24/2013 Sleep apnea Onset: 4 Resolved: 09/24/2013 Palpitations Onset: 4 Resolved: 09/24/2013 Hypertensive disorder Onset: Resolved: 05/08/2010 Results Test Acquired Date Facility Test Result H/L Range Note Egfr 09/08/[address] [address] Glomerular Filtration Rate/1.73 SQ M.Predicted.Non Black:Arvrat:PT :Ser/Plas/BLD:Q N:Creatinine-Ba sed Formula (MDRD) 52 mL/min/1.73m 2 Low >=59 1 Glomerular Filtration Rate/1.73 SQ M.Predicted.Hung ck:Arvrat:PT:Se r/Plas/BLD:QN:C reatinine-Based Formula (MDRD) >60 mL/min/1.73m 2 >=59 2 BMP 09/08/[address] [address] Glucose:MCNC:PT :BLD:QN: 224 mg/dL High 55-199 3 Urea Nitrogen:MCNC:P T:Ser/Plas:QN: 24 mg/dL High 5-21 Creatinine:MCNC :PT:Ser/Plas:QN : 1.1 mg/dL 0.5-1.3 Urea Nitrogen/Creati nine:Mrto:PT:Se r/Plas:QN: 22 NoUnits High 10-20 Calcium:MCNC:PT :Ser/Plas:QN: 8.8 mg/dL Low 8.9-11.1 Sodium:SCNC:PT: Ser/Plas:QN: 125 mmol/L Low 135-145 Potassium:SCNC: PT:Ser/Plas:QN: 3.2 mmol/L Low 3.5-5.3 Chloride:SCNC:P T:Ser/Plas:QN: 82 mmol/L Low 101-111 Carbon Dioxide:SCNC:PT :Ser/Plas:QN: 31 mmol/L 21-31 Anion Gap:SCNC:PT:Ser /Plas:QN: 15 mEq/L 6-16 TSH 09/05/2020 [facility] [address] [place] [address] TSH 8.15 mcIU/mL High 0.34-5.60 4 .Renal Panel 05/09/2020 [facility] ([phone] .Albumin 3.6 .Calcium 9.7 .Carbon Dioxide 34 .Chloride 86 .Creatinine-LC 1.4 .Sodium 136 .BUN 30 .GFR-LC 39 .Potassium 3.8 .Renal Panel 01/03/2020 [facility] [address] [place] [address] [phone] .Albumin 3.9 .Calcium 9.1 .Carbon Dioxide 34 .Chloride 90 .Creatinine-LC 1.1 .Phosphorus 4.5 .Sodium 135 .BUN 39 .GFR-LC 52 High 20 .Potassium 3.9 Chemistry 12/22/2019 N2N/CCD Imports Potassium Lvl 4.5 mmol/L 3.5-5.3 Chemistry 12/22/2019 N2N/CCD Imports Glucose Cap 433 mg/dL High 55-99 Poc Device SN [id number] Poc Username Ottoniel Haven Chemistry 12/22/2019 N2N/CCD Imports Glucose Cap 346 mg/dL High 55-99 Poc Device SN [id number] Poc Username Palmer Arraselia Chemistry 12/22/2019 N2N/CCD Imports Glucose Cap 243 mg/dL High 55-99 Poc Device SN [id number] Poc Username Palmer Arraselia Chemistry 12/22/2019 N2N/CCD Imports BUN 49 mg/dL High 5-21 Creatinine 1.2 mg/dL 0.5-1.3 Sodium Lvl 134 mmol/L Low 135-145 Chloride 83 mmol/L Low 101-111 Co2 37 mmol/L High 21-31 Agap 17 mEq/L High 6-16 BUN/Creat Ratio 41 1 High 10-20 Calcium Lvl 9.0 mg/dL 8.9-11.1 Glucose Lvl 226 mg/dL High 55-199 Potassium Lvl 2.8 mmol/L 3.5-5.3 5 Magnesium 2.2 mg/dL 1.3-2.4 eGFR 47 mL/min/1.73m 2 Low >=59mL/min/ 1.73 m2 eGFR Aa 57 mL/min/1.73m 2 Low >=59mL/min/ 1.73 m2 Chemistry 12/21/2019 N2N/CCD Imports Potassium Lvl 3.5 mmol/L 3.5-5.3 Magnesium 2.0 mg/dL 1.3-2.4 Chemistry 12/21/2019 N2N/CCD Imports BUN 32 mg/dL High 5-21 Creatinine 0.9 mg/dL 0.5-1.3 Sodium Lvl 135 mmol/L 135-145 Chloride 87 mmol/L Low 101-111 Co2 35 mmol/L High 21-31 Agap 16 mEq/L 6-16 BUN/Creat Ratio 36 1 High 10-20 Calcium Lvl 8.9 mg/dL 8.9-11.1 Glucose Lvl 199 mg/dL 55-199 Magnesium 2.2 mg/dL 1.3-2.4 eGFR >60 mL/min/1.73m 2 >=59mL/min/ 1.73 m2 eGFR Aa >60 mL/min/1.73m 2 >=59mL/min/ 1.73 m2 Chemistry 12/20/2019 N2N/CCD Imports BUN 26 mg/dL High 5-21 Creatinine 0.8 mg/dL 0.5-1.3 Sodium Lvl 136 mmol/L 135-145 Chloride 89 mmol/L Low 101-111 Co2 35 mmol/L High 21-31 Agap 15 mEq/L 6-16 BUN/Creat Ratio 32 1 High 10-20 Calcium Lvl 8.9 mg/dL 8.9-11.1 Glucose Lvl 236 mg/dL High 55-199 eGFR >60 mL/min/1.73m 2 >=59mL/min/ 1.73 m2 eGFR Aa >60 mL/min/1.73m 2 >=59mL/min/ 1.73 m2 FT Blood Gases 12/18/2019 N2N/CCD Imports pH Arterial 7.284 Low 7.350-7.450 P Co2 Arterial 85.1 mm[Hg] High 35.0- 45.0 P O2 Arterial 36.7 mm[Hg] Low 80.0-1 00.0 Sample Type Arterial Sample Site RR Act. Rate 24 BiPAP 26/8 Fio2 BG 40 Drawn by Sandy FT Blood Gases 12/18/2019 N2N/CCD Imports pH Arterial 7.310 Low 7.350-7.450 6 P Co2 Arterial 78.1 mm[Hg] High 35.0- 45.0 7 P O2 Arterial 62.6 mm[Hg] Low 80.0-1 00.0 8 Base Excess Arterial 10.0 mmol/L >=2.8mmol/L Hco3 Arterial 33.6 mmol/L High 22.0-2 6.0 Total Hgb Art 12.6 g/dL 12.0-16. 0 FO2Hb Art 89.5 % Low 92.0-100.0 9 FCOHb Art 1.6 % 1.5-4.9 FMetHb Art 0.9 % 0.0-1.9 O2 Sat Art 91.7 % Low 95.0-100.0 10 herbicide sprayer+ Art 140.0 mmol/L 135.0-145. 0 cK+ Art 4.2 mmol/L 3.5-5.3 cCa2+ Art 4.46 mg/dL 4.40-5.30 cCl- Art 91.0 mmol/L Low 101.0-111.0 11 cGlu Art 352.0 mg/dL High 55.0-199.0 12 cLac Art 2 mmol/L Low 5-14 13 AaDO2 Art 198.8 High 5.0-15.0 a/A Ratio Art 24.00 >=0.80 Sample Type Arterial Sample Site RB Called To: handy Called By: baldev Dt/Tm Notified 08:23:00 Allens Test Positive Act. Rate 24.0 BiPAP 26/8 Device bipap Fio2 BG 50.0 Drawn by baldev Chemistry 12/17/2019 N2N/CCD Imports Troponin 4.70 pg/mL Low 10.10-27.10 Urinalysis 12/17/2019 N2N/CCD Imports Ua Spec Desc Clean Catch Ua Color Yellow Yellow Ua Clarity Clear Clear Ua Spec Grav 1.010 1.005-1.030 Ua pH 5.5 5.0-9.0 Ua Protein Negative Negative Ua Glucose Negative Negative Ua Ketones Negative Negative Ua Bili Negative Negative Ua Blood Negative Negative Ua Nitrite Negative Negative Ua Leuk Est Negative Negative Ua Urobilinogen 0.2 Eu/dL 0.0-1. 0 Ua WBC 0-5 /HPF 0-5/HPF Ua RBC 0-3 /HPF 0-3/HPF Ua Squam Epithelial 3-4 /HPF 0-2/HPF FT Blood Gases 12/17/2019 N2N/CCD Imports pH Arterial 7.209 Low 7.350-7.450 14 P Co2 Arterial 99.9 mm[Hg] High 35.0- 45.0 15 P O2 Arterial 81.8 mm[Hg] 80.0-1 00.0 Base Excess Arterial 8.4 mmol/L >=2.8mmol/L Hco3 Arterial 32.1 mmol/L High 22.0-2 6.0 Total Hgb Art 12.4 g/dL 12.0-16. 0 FO2Hb Art 92.0 % 92.0-100.0 FCOHb Art 2.6 % 1.5-4.9 FMetHb Art 0.7 % 0.0-1.9 O2 Sat Art 95.2 % 95.0-100.0 herbicide sprayer+ Art 143.0 mmol/L 135.0-145. 0 cK+ Art 3.7 mmol/L 3.5-5.3 cCa2+ Art 4.60 mg/dL 4.40-5.30 cCl- Art 94.0 mmol/L Low 101.0-111.0 16 cGlu Art 214.0 mg/dL High 55.0-199.0 17 cLac Art 1 mmol/L Low 5-14 AaDO2 Art 155.1 High 5.0-15.0 a/A Ratio Art 34.50 >=0.80 Sample Type Arterial Sample Site RR Called To: Rl Uribe Called By: Savannah Sher Dt/Tm Notified 21:45:00 Allens Test Positive BiPAP 20/10 Fio2 BG 50.0 Drawn by P Chemistry 12/17/2019 N2N/CCD Imports Troponin 5.20 pg/mL Low 10.10-27.10 Chemistry 12/17/2019 N2N/CCD Imports Lactic Acid Lvl 1.5 mmol/L 0.5-2.2 Chemistry 12/17/2019 N2N/CCD Imports Troponin 4.80 pg/mL Low 10.10-27.10 Lab Results 12/17/2019 N2N/CCD Imports Blood Culture Charcoal No growth at 7 days. Hematology 12/17/2019 N2N/CCD Imports WBC 7.3 E9/L 4.0-11.0 RBC 4.2 E12/L Low 4.3-5.9 Hgb 12.3 g/dL 12.0-16.0 Hct 39.4 % 34.0-46.0 RDW 15.8 % High 10.9-14.2 MCH 29.2 pg 27.0-34.0 MCHC 31.3 g/dL Low 31.4-36.0 MCV 93.3 fL 80.0-100.0 MPV 8.4 fL 6.4-10.8 Platelet 221.0 E9/L 150.0-500.0 Chemistry 12/17/2019 N2N/CCD Imports Lipase Lvl 27 unit/L 13-58 Alt 33 [iU]/d 6-46 Ast 17 [iU]/d 5-43 Albumin Lvl 3.4 g/dL 3.3-5.0 Alk Phos 55 [iU]/d 21-98 Bili Total 0.1 mg/dL 0.0-1.1 Total Protein 7.0 g/dL 6.0-7.8 Globulin 3.6 g/dL 1.4-4.0 A/G Ratio 0.9 Low 1.1-2.2 Bili Direct <0.1 mg/dL 0.1-0.4 Bili Indirect Unable to Calculate mg/dL 0.1-0.9 Coagulation 12/17/2019 N2N/CCD Imports Inr 1.1 PT 12.3 s 10.2-12.9 PTT 30.9 s 25.1-36.5 Chemistry 12/17/2019 N2N/CCD Imports Lactic Acid Lvl 2.0 mmol/L 0.5-2.2 BNP 42 pg/mL 5-80 Hematology 12/17/2019 N2N/CCD Imports Neutro Auto 79.3 % High 36.0-75.0 Lymph Auto 12.1 % Low 14.0-50.0 [place] Auto 5.7 % 4.0-14.0 Eos Auto 2.5 % 0.0-8.0 Basophil Auto 0.4 % 0.0-2.0 Neutro Absolute 5.8 E9/L 2.0-7.5 Lymph Absolute 0.9 E9/L Low 1.0-4.0 [place] Absolute 0.4 E9/L 0.2-1.0 Eos Absolute 0.2 E9/L 0.0-0.5 Basophil Absolute 0.0 E9/L 0.0-0.2 Lab Results 12/17/2019 N2N/CCD Imports Blood Culture Charcoal No growth at 7 days. FT Blood Gases 12/17/2019 N2N/CCD Imports Base Excess Arterial 10.6 mmol/L >=2.8mmol/L Hco3 Arterial 34.1 mmol/L High 22.0-2 6.0 Total Hgb Art 12.0 g/dL 12.0-16. 0 18 FO2Hb Art 85.3 % Low 92.0-100.0 19 FCOHb Art 4.2 % 1.5-4.9 FMetHb Art 0.8 % 0.0-1.9 O2 Sat Art 89.8 % Low 95.0-100.0 20 herbicide sprayer+ Art 143.0 mmol/L 135.0-145. 0 cK+ Art 3.7 mmol/L 3.5-5.3 cCa2+ Art 4.56 mg/dL 4.40-5.30 cCl- Art 92.0 mmol/L Low 101.0-111.0 21 cGlu Art 261.0 mg/dL High 55.0-199.0 22 cLac Art 2 mmol/L Low 5-14 23 AaDO2 Art 99.5 High 5.0-15.0 a/A Ratio Art 36.70 >=0.80 Called To: julio díaz Called By: jacquelin rai Dt/Tm Notified 14:29:00 Allens Test N/A Device Cannula Flow 4.00 1 Chronic kidney disea se could be indicated at eGFR's of less than 60 mL/min/1.73m2. Kidney failure is indicated at less than 15 mL/min/1.73m2. 2 eGFR is race adjuste d. AA=. 3 If this glucose resu lt represents a fasting glucose, interpretation should refer to the following reference range: 55-99 mg/dL 4 [facility] [address] [place] [address] 5 Result Comment: Crit ical Result verified by repeat analysis\Critical Result S_K:2.8 Called to [facility] [place] AT 2N by CARLOS EDUARDO OLSEN And Read Back For Confirmation at: 12/22/2019 07:12:12\Result S_K:2.8 Called to [facility] [place] AT 2N by CARLOS EDUARDO OLSEN And Read Back For Confirmation at: 12/22/2019 07:12:12 6 Result Comment: 84^V alue below reference range 7 Result Comment: 86^V alue above critical limit 8 Result Comment: 84^V alue below reference range 9 Result Comment: 84^V alue below reference range 10 Result Comment: 84^V alue below reference range 11 Result Comment: 84^V alue below reference range 12 Result Comment: 83^V alue above reference range 13 Result Comment: 83^V alue above reference range 14 Result Comment: 85^V alue below critical limit 15 Result Comment: 86^V alue above critical limit 16 Result Comment: 84^V alue below reference range 17 Result Comment: 83^V alue above reference range 18 Result Comment: 84^V alue below reference range 19 Result Comment: 84^V alue below reference range 20 Result Comment: 84^V alue below reference range 21 Result Comment: 84^V alue below reference range 22 Result Comment: 83^V alue above reference range 23 Result Comment: 83^V alue above reference range Assessments Date Code Description Provider 09/15/2020 N17.9 Acute kidney failure, unspec ified Mehdi Wolf M.D. 09/15/2020 N18.30 Chronic kidney disease, stag e 3 unspecified Mehdi Wolf M.D. 09/15/2020 E83.52 Hypercalcemia Stuart Stark 09/15/2020 J96.90 Respiratory fail ure, unspecified, unspecified whether with hypoxia or hypercapnia Mehdi Wolf M.D. 09/14/2020 N17.9 Acute kidney failure, unspec ified Mehdi Wolf M.D. 09/14/2020 N18.30 Chronic kidney disease, stag e 3 unspecified Mehdi Wolf M.D. 09/14/2020 E83.52 Hypercalcemia Stuart Stark 09/14/2020 J96.90 Respiratory fail ure, unspecified, unspecified whether with hypoxia or hypercapnia Mehdi Wolf M.D. 09/13/2020 N17.9 Acute kidney failure, unspec ified Mehdi Wolf M.D. 09/13/2020 N18.30 Chronic kidney disease, stag e 3 unspecified Mehdi Wolf M.D. 09/13/2020 E83.52 Hypercalcemia Stuart Stark 09/13/2020 J96.90 Respiratory fail ure, unspecified, unspecified whether with hypoxia or hypercapnia Mehdi Wolf M.D. 09/12/2020 N17.9 Acute kidney failure, unspec ified Mehdi Wolf M.D. 09/12/2020 N18.30 Chronic kidney disease, stag e 3 unspecified Mehdi Wolf M.D. 09/12/2020 E83.52 Hypercalcemia Stuart Stark 09/12/2020 J96.90 Respiratory fail ure, unspecified, unspecified whether with hypoxia or hypercapnia Mehdi Wolf M.D. 09/11/2020 N17.9 Acute kidney failure, unspec ified Mehdi Wolf M.D. 09/11/2020 N18.30 Chronic kidney disease, stag e 3 unspecified Mehdi Wolf M.D. 09/11/2020 E83.52 Hypercalcemia Stuart Stark 09/11/2020 J96.90 Respiratory fail ure, unspecified, unspecified whether with hypoxia or hypercapnia Mehdi Wolf M.D. 09/09/2020 N17.9 Acute kidney failure, unspec ified Mehdi Wolf M.D. 09/09/2020 N18.30 Chronic kidney disease, stag e 3 unspecified Mehdi Wolf M.D. 09/09/2020 E83.52 Hypercalcemia Stuart Stark 09/09/2020 J96.90 Respiratory fail ure, unspecified, unspecified whether with hypoxia or hypercapnia Mehdi Wolf M.D. 09/08/2020 N17.9 Acute kidney failure, unspec ified Daniella Campbell M.D. 09/08/2020 N18.30 Chronic kidney disease, stag e 3 unspecified Daniella Campbell M.D. 09/08/2020 E83.52 Hypercalcemia Daniella hammond M.D. 09/08/2020 J96.90 Respiratory fail ure, unspecified, unspecified whether with hypoxia or hypercapnia Daniella Kamadana M.D. 09/07/2020 N17.9 Acute kidney failure, unspec ified Daniella Kamadana M.D. 09/07/2020 N18.30 Chronic kidney disease, stag e 3 unspecified Daniella Kamadana M.D. 09/07/2020 E83.52 Hypercalcemia Daniella Kamadan a M.D. 09/07/2020 J96.90 Respiratory fail ure, unspecified, unspecified whether with hypoxia or hypercapnia Daniella Kamadana M.D. 09/06/2020 N17.9 Acute kidney failure, unspec ified Daniella Kamadana M.D. 09/06/2020 N18.30 Chronic kidney disease, stag e 3 unspecified Daniella Kamadana M.D. 09/06/2020 E83.52 Hypercalcemia Daniella Kamadan a M.D. 09/06/2020 J96.90 Respiratory fail ure, unspecified, unspecified whether with hypoxia or hypercapnia Daniella Kamadana M.D. 09/05/2020 N17.9 Acute kidney failure, unspec ified Daniella Kamadana M.D. 09/05/2020 N18.30 Chronic kidney disease, stag e 3 unspecified Daniella Kamadana M.D. 09/05/2020 E83.52 Hypercalcemia Daniella Kamadan a M.D. 09/05/2020 J96.90 Respiratory fail ure, unspecified, unspecified whether with hypoxia or hypercapnia Daniella Kamadana M.D. 03/30/2020 N17.9 Acute kidney failure, unspec ified Kavon Guevara MD 03/30/2020 N18.3 Chronic kidney disease, stag e 3 (moderate) Kavon Guevara MD 03/30/2020 E87.1 Hypo-osmolality and hyponatr emia Kavon Guevara MD 03/30/2020 E87.3 Alkalosis Stuart Campa 03/29/2020 N17.9 Acute kidney failure, unspec ified Kavon Guevara MD 03/29/2020 N18.3 Chronic kidney disease, stag e 3 (moderate) Kavon Guevara MD 03/29/2020 E87.1 Hypo-osmolality and hyponatr emia Kavon Guevara MD 03/29/2020 E87.3 Alkalosis Stuart Campa 12/22/2019 I50.9 Heart failure, unspecified S kat Guevara MD 12/22/2019 E87.6 Hypokalemia Stuart Campa 12/22/2019 J44.9 Chronic obstruct destiny pulmonary disease, unspecified Kavon Guevara MD 12/22/2019 E66.01 Morbid (severe) obesity due to excess calories Kavon Guevara MD 12/21/2019 I50.9 Heart failure, unspecified K tierra Escobar, [place] 12/21/2019 E87.6 Hypokalemia Miladis Escobar NP 12/21/2019 J44.9 Chronic obstruct destiny pulmonary disease, unspecified Miladis Escobar, [place] 12/21/2019 E66.01 Morbid (severe) obesity due to excess calories Miladis Escobar, [place] 12/20/2019 I50.9 Heart failure, unspecified S kat Guevara MD 12/20/2019 E87.6 Hypokalemia Stuart Campa 12/20/2019 J44.9 Chronic obstruct destiny pulmonary disease, unspecified Kavon Guevara MD 12/20/2019 E66.01 Morbid (severe) obesity due to excess calories Kavon Guevara MD 12/08/2018 I10 Essential (primary) hyperten spencer Guevara MD 12/08/2018 E87.1 Hypo-osmolality and hyponatr emlady Guevara MD 12/08/2018 E66.01 Morbid (severe) obesity due to excess calories Kavon Guevara MD 12/08/2018 J44.9 Chronic obstruct destiny pulmonary disease, unspecified Kavon Guevara MD 12/07/2018 I10 Essential (primary) phoebe Guevara MD 12/07/2018 E87.1 Hypo-osmolality and hyponatr emia Kavon Guevara MD 12/07/2018 E66.01 Morbid (severe) obesity due to excess calories Kavon Guevara MD 12/07/2018 J44.9 Chronic obstruct destiny pulmonary disease, unspecified Kavon Guevara MD
--- NOTE | 2024-12-23 14:18 | MM_ITS ---
Patient Name: FRITZ EVANS MR#: [id number] : 1965 Exam Date: 12/23/2024 Ordering Doctor: L[facility] REPORT PROCEDURE: MM TOMOSYNTHESIS SCREENING BI COMPARISON: MM TOMOSYNTHESIS SCREENING BI, 12/19/2023. MG MAMM SCREEN IVONNE W CAD, 02/09/2018. MG MAMM SCREEN IVONNE W CAD, 12/31/2016. INDICATIONS: Screening Calculator Name NCI Breast Cancer Risk Assessment Tool 5 Year Breast Cancer Risk 1.40% Lifetime Breast Cancer Risk 7.40% Personal Breast Cancer No Personal Ovarian Cancer No Treatments None Family Cancers None LOCATION: [facility] BREAST COMPOSITION: There are scattered areas of fibroglandular density. FINDINGS: DIAGNOSTIC CATEGORY 0--INCOMPLETE: NEED ADDITIONAL IMAGING EVALUATION. LEFT BREAST: No significant suspicious finding. RIGHT BREAST: Asymmetry lateral aspect of the right breast, anterior depth CC view only. RECOMMENDATIONS: ADDITIONAL MAMMOGRAPHIC VIEWS REQUIRED: RIGHT BREAST - spot-compression/true lateral views, possible ultrasound are recommended. PLEASE NOTE: A NORMAL MAMMOGRAM DOES NOT EXCLUDE THE POSSIBILITY OF BREAST CANCER. A CLINICALLY SUSPICIOUS PALPABLE LUMP SHOULD BE BIOPSIED. Dictated by: Ajay Dumont DO on 12/23/2024 at 15:55 Approved by: Ajay Dumont DO on 12/23/2024 at 15:59
--- OUTSIDE RECORDS SUMMARY | 2024-12-23 15:18 | XMS_ITS | CCD ---
Author Organization Unknown Care Team Providers Care Microbiological Laboratory Technician Name Role Phone Unavailable Primary Care Provider Unavailabl e Unavailable Chronic Care Management Unavaila ble Summary Purpose DataExchange Insurance Providers Payer name Policy type / Coverage type Covered libertarian ID Effective Begin Date Effective End Date [facility] [id number] Unknown Unknown Family History Family History data not found Medication Administered No Medication Administered data Reason For Visit No Reason For Visit data Medical Equipment No Medical Equipment data Advance Directives No Advance Directive data
== END 2024-12-23 14:13 | disposition home or self-care (01) ==
PROVIDERS: PCP Internal Medicine; Visit Provider Internal Medicine
DX: R92.8 Other abnormal and inconclusive findings on diagnostic imaging of breast (principal); Z87.891 Personal history of nicotine dependence; Z12.2 Encounter for screening for malignant neoplasm of respiratory organs; Z12.31 Encounter for screening mammogram for malignant neoplasm of breast
CPT/HCPCS: 71271; 77063; 77067